=== PATIENT | female | born 1990 | race Two or more races ===

== ENCOUNTER 2022-01-19 18:33 | Inpatient (IN) | payer BC ==
[2022-01-19] MEDS ORDERED: SODIUM CHLORIDE 0.9% 1,000 ML IV ONE (18:59)
[2022-01-19] MEDS ORDERED: LORazepam 2 MG/ML INJ IV STA ×2 (18:59→22:00)
[2022-01-19 19:48] LABS: Basophils # (A) 0.1 k/uL (0-0.2); Basophils % (A) 1 %; Eosinophils # (A) 0.2 k/uL (0-0.7); Eosinophils % (A) 2 %; HCT 43.6 % (34.0-46.0); HGB 14.8 gm/dL (11.4-16.0); Lymphocytes # (A) 1.8 k/uL (1.0-4.8); Lymphocytes % (A) 24 %; MCH 38.4 pg (25.0-35.0); MCHC 33.8 g/dL (31.0-37.0); Macrocytosis Marked; Mean Platelet Volume 7.7; Monocytes # (A) 0.6 k/uL (0-1.0); Monocytes % (A) 8 %; Neutrophils # (A) 4.7 k/uL (1.3-7.7); Neutrophils % (A) 63 %; Platelet Count 127 k/uL (150-450); RBC 3.85 m/uL (3.80-5.40); RDW 13.8 % (11.5-15.5); WBC 7.4 k/uL (3.8-10.6)
[2022-01-19 19:53] LABS: MCV 113.3 fL (80.0-100.0)
[2022-01-19 20:05] LABS: Basophilic Stippling Present; Polychromasia Present
[2022-01-19] MEDS ORDERED: LORazepam 2 MG/ML INJ IV PRN (20:17)
[2022-01-19] MEDS ORDERED: THIAMINE 100 MG/ML 2 ML VIAL IM STA (20:17)
[2022-01-19 20:20] LABS: African American GFR (CKD) >90 (>60 ml/min/1.73 sqM); Albumin 4.7 g/dL (3.5-5.0); Anion Gap 14 mmol/L; Blood Urea Nitrogen 10 mg/dL (7-17); Calcium 10.2 mg/dL (8.4-10.2); Carbon Dioxide 18 mmol/L (22-30); Chloride 104 mmol/L (98-107); Glucose 75 mg/dL (74-99); Non-African American GFR(CKD) >90 (>60 ml/min/1.73 sqM); Potassium 3.3 mmol/L (3.5-5.1); Sodium 136 mmol/L (137-145); Total Bilirubin 1.6 mg/dL (0.2-1.3); Total Protein 7.6 g/dL (6.3-8.2)
[2022-01-19 20:22] LABS: ALT 69 U/L (4-34); AST 180 U/L (14-36); Alcohol <10 mg/dL; Alkaline Phosphatase 255 U/L (38-126); Magnesium 1.8 mg/dL (1.6-2.3)
--- NOTE | 2022-01-19 21:00 | ED ---
General Adult HPI - General Chief complaint: Psychiatric Symptoms Stated complaint: Petition Time Seen by Provider: 01/19/22 18:43 Source: patient, RN notes reviewed, old records reviewed Mode of arrival: ambulatory Limitations: no limitations - History of Present Illness Initial comments: 31-year-old female presenting for evaluation of hallucinations. She brought in by local police. She has been petitioned for psychiatric evaluation. She has no previous diagnosed psychiatric condition. She is a daily drinker and states her last drink was about 4 days ago. Patient is anxious but cooperative with history. She states she took some sleeping medication because she hasn't slept in the past 4 days. - Related Data Home Medications Medication Instructions Recorded Confirmed Sertraline HCl [Zoloft] 25 mg PO DAILY 01/19/22 01/19/22 hydrOXYzine HCL [Atarax] 10 mg PO DAILY PRN 01/19/22 01/19/22 Allergies Allergy/AdvReac Type Severity Reaction Status Date / Time No Known Allergies Allergy Verified 01/19/22 21:41 Review of Systems ROS Statement: Those systems with pertinent positive or pertinent negative responses have been documented in the HPI. ROS Other: All systems not noted in ROS Statement are negative. Past Medical History Additional Past Medical History / Comment(s): kidney stones History of Any Multi-Drug Resistant Organisms: None Reported Past Surgical History: No Surgical Hx Reported Past Psychological History: No Psychological Hx Reported Smoking Status: Current every day smoker Past Alcohol Use History: None Reported Past Drug Use History: Marijuana General Exam Limitations: no limitations General appearance: alert, anxious (Tremulous) Head exam: Present: atraumatic, normocephalic Eye exam: Present: normal appearance, PERRL ENT exam: Present: mucous membranes dry Neck exam: Present: normal inspection. Absent: tenderness, meningismus Respiratory exam: Present: normal lung sounds bilaterally. Absent: respiratory distress, wheezes Cardiovascular Exam: Present: normal rhythm, tachycardia GI/Abdominal exam: Present: soft. Absent: distended, tenderness, guarding Extremities exam: Present: normal inspection, normal capillary refill. Absent: pedal edema, calf tenderness Neurological exam: Present: alert, oriented X3, CN II-XII intact. Absent: motor sensory deficit Psychiatric exam: Present: anxious, manic Skin exam: Present: warm, dry, intact. Absent: cyanosis, diaphoretic Course Vital Signs 01/19/22 18:36 Temperature 100.4 F H Pulse Rate 151 H Respiratory 18 Rate Blood Pressure 151/97 O2 Sat by Pulse 97 Oximetry Medical Decision Making - Medical Decision Making 31-year-old female presenting with visual and auditory hallucination. Patient has a tremor. When she focuses she was able to give a good historian details and admits that she hasn't slept in the past 4 days and admits that she does drink quite regularly. I discussed the case with her who has petitioned her. He states that she is a daily drinker. This may be alcohol withdrawal hallucination and impending delirium tremens. She's given Ativan and placed on Ativan according to CIWA scale she will be admitted to a monitored bed. Psyc hiatry will be placed on consult. Laboratory testing is consistent with alcohol abuse. She has hypokalemia, elevated bilirubin and AST and ALT. Serum alcohol is negative. - Lab Data Result diagrams: 01/19/22 19:38 01/19/22 19:38 Lab Results 01/19/22 01/19/22 01/19/22 Range/Units 19:38 19:38 19:39 WBC 7.4 (3.8-10.6) k/uL RBC 3.85 (3.80-5.40) m/uL Hgb 14.8 (11.4-16.0) gm/dL Hct 43.6 (34.0-46.0) % MCV 113.3 H (80.0-100.0) fL MCH 38.4 H (25.0-35.0) pg MCHC 33.8 (31.0-37.0) g/dL RDW 13.8 (11.5-15.5) % Plt Count 127 L (150-450) k/uL MPV 7.7 Neutrophils % 63 % Lymphocytes % 24 % Monocytes % 8 % Eosinophils % 2 % Basophils % 1 % Neutrophils # 4.7 (1.3-7.7) k/uL Lymphocytes # 1.8 (1.0-4.8) k/uL Monocytes # 0.6 (0-1.0) k/uL Eosinophils # 0.2 (0-0.7) k/uL Basophils # 0.1 (0-0.2) k/uL Manual Slide Review Performed Polychromasia Present Basophilic Stippling Present Macrocytosis Marked A Sodium 136 L (137-145) mmol/L Potassium 3.3 L (3.5-5.1) mmol/L Chloride 104 (98-107) mmol/L Carbon Dioxide 18 L (22-30) mmol/L Anion Gap 14 mmol/L BUN 10 (7-17) mg/dL Creatinine 0.57 (0.52-1.04) mg/dL Est GFR (CKD-EPI)AfAm >90 (>60 ml/min/1.73 sqM) Est GFR (CKD-EPI)NonAf >90 (>60 ml/min/1.73 sqM) Glucose 75 (74-99) mg/dL Calcium 10.2 (8.4-10.2) mg/dL Magnesium 1.8 (1.6-2.3) mg/dL Total Bilirubin 1.6 H (0.2-1.3) mg/dL AST 180 H (14-36) U/L ALT 69 H (4-34) U/L Alkaline Phosphatase 255 H (38-126) U/L Total Protein 7.6 (6.3-8.2) g/dL Albumin 4.7 (3.5-5.0) g/dL HCG, Qual Not Detected Serum Alcohol <10 mg/dL Disposition Clinical Impression: Acute psychosis, Alcohol withdrawal delirium Disposition: ADMITTED IP TO THIS HOSP Condition: Serious Is patient prescribed a controlled substance at d/c from ED?: No Time of Disposition: 21:01
[2022-01-19] MEDS ORDERED: NALOXONE 0.4 MG/ML 1 ML VIAL IV PRN (21:01)
[2022-01-19] MEDS ORDERED: SODIUM CHLORIDE 0.9% 1,000 ML with MVI, ADULT NO.4 WITH VIT K 10 ML, THIAMINE 100 MG, F... IV ONE ×4 (21:03)
--- NOTE | 2022-01-19 22:06 | CT ---
EXAMINATION TYPE: CT brain wo con DATE OF EXAM: 01/19/2022 COMPARISON: None HISTORY: ams CT DLP: 1173.4 mGycm Automated exposure control for dose reduction was used. Images of the brain obtained without contrast. Ventricles of normal size. There is no mass effect nor midline shift. There is no sign of intracrania l hemorrhage. The calvarium is intact. No evidence of cerebral edema. IMPRESSION: Negative unenhanced head CT scan.
[2022-01-19 22:29] LABS: Appearance,Urine Clear (Clear); Bilirubin,Urine Negative (Negative); Blood,Urine Negative (Negative); Color,Urine Yellow; Glucose,Urine (UA) Negative (Negative); Ketones,Urine 3+ (Negative); Leukocyte Esterase,Urine Negative (Negative); Nitrite,Urine Negative (Negative); Protein,Urine Trace (Negative)
[2022-01-19 22:39] LABS: Urn Cannabinoid Scrn Detected (NotDetected)
[2022-01-19 22:40] LABS: Amphetamine Screen,Urine Not Detected (NotDetected); Barbiturate Screen,Urine Not Detected (NotDetected); Benzodiazepines Screen,Urine Not Detected (NotDetected); Cocaine Screen,Urine Not Detected (NotDetected); Methadone Screen, Urine Not Detected (NotDetected); Opiate Screen,Urine Not Detected (NotDetected); Oxycodone Screen, Urine Not Detected (NotDetected); Phencyclidine Screen,Urine Not Detected (NotDetected); Tricyclic Antidepressant,Urine Not Detected (NotDetected)
[2022-01-19] MEDS ORDERED: DIAZEPAM 5 MG/ML 2 ML INJ IVP STA (22:55)
[2022-01-20] MEDS: POTASSIUM CHLORIDE 10 MEQ in WATER FOR INJECTION 1 100ML.BAG IVPB SCH ×4 (00:50→04:43)
[2022-01-20] MEDS: LORazepam 2 MG/ML INJ IV PRN ×4 (06:34→20:53)
[2022-01-20] MEDS: THIAMINE 100 MG TAB PO SCH ×2 (07:23→18:52)
[2022-01-20] MEDS: HYDROmorphone 0.5 MG/0.5 ML SYRINGE IVP PRN (13:57)
--- NOTE | 2022-01-20 17:22 | P.CN ---
Psychiatric Consult - . Consult date: 01/20/22 Consult:: IDENTIFYING DATA: A 31-year-old female who presented to the ER for evaluation of hallucinations. Psychiatry is consulted for acute psychosis. HPI: This is a 31-year-old female who was brought in by police on a petition for hallucinations. On my assessment patient is found sitting up in bed. She is labile and at times during the assessment she begins to attend to internal stimuli. Her thoughts are disorganized and call to follow. She is easily confused and her says that she is at [place] but eventually corrects herself to say [place]. She reports in the past week she has taken Unisom on 2 different occasions due to difficulty sleeping. She reports she also tried to quit drinking cold turkey. She reports this week she started to hallucinate and see things out of the corner of her eye. She also believed "like someone was messing with the blinds". 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 He appears to be an unreliable historian. She denies auditory or visual hallucinations, but clearly appears to be attending to internal stimuli during our assessment. She appears to be utilizing the defense mechanisms of denial and minimization. She does not believe she needs psychiatric treatment and wants to go home. Labs reviewed: MCV elevated, AST ALT and alk phos elevated, UDS positive for marijuana, urinalysis with positive ketones. PAST PSYCHIATRIC HISTORY: She denies past psychiatric admissions. She denies ever seeing a psychiatrist before. She does report having seen a therapist on [address]. She reports past psychiatric medications as Hamer and Ativan. Past Medical History: She denies past medical history except for kidney stones. Past Surgical History: Denies past surgeries. ALLERGIES: Allergies No Known Allergies Allergy (Verified 01/19/22 21:41) CHEMICAL DEPENDENCY HISTORY: He reports a history of smoking daily but reports she now mostly tapes. She reports drinking between 4 shots to 1 pint of vodka daily. He reports daily marijuana use. FAMILY PSYCHIATRIC/SUBSTANCE USE HISTORY: She reports an uncle is diagnosed with schizophrenia. SOCIAL HISTORY: She reports she is and has a 2-year-old daughter. He reports living with her and 2-year-old daughter. He reports working at [employer]. MENTAL STATUS EXAM: General Appearance: Patient appears slender and younger than stated age. Orientation: She is awake, alert, and oriented to person, place (initially says [place] but corrects herself to [place]), month/year. Behavior: Patient is seated in bed without any agitated behavior. Eye contact is intense and is easily frustrated. Speech: Patient's speech is fluent, loud, rapid but nonpressured. Mood/Affect: Patient reports mood is fine, affect is labile Suicidality/Homicidality: Patient denies suicidal or homicidal ideations, plan or intent. Perceptions: Patient denies any visual hallucinations and denies any auditory hallucinations, but objectively is attending to internal stimuli. Though content/process: Thoughts are disorganized and difficult to follow. She appears to be utilizing the defense mechanisms of denial and minimization. Memory and concentration: Immediate, recent and remote memory are impaired. Insight: poor Judgment: poor IMPRESSIONS: Alcohol withdrawal with perceptual disturbances Rule out substance-induced psychosis such as cannabis-induced psychosis Alcohol use disorder Cannabis use disorder Tobacco use disorder PLAN: Please DO NOT discharge patient without first discussing with psychiatry. Psychiatry will continue to follow and reassess patient to determine whether inpatient psychiatric admission is necessary. Recommended medication changes: Start Seroquel 25 mg daily at bedtime for psychosis/delirium. Continue CIWA and alcohol withdrawal protocol. Vitamin B12 and folate levels ordered. Continue one-to-one sitter for safety. Patient cannot leave AMA at this time. Patient currently does not have capacity for medical decision making due to psychosis. 01/20/22 13:16 01/20/22 16:46 Laboratory Tests Range/Units 01/19/22 01/19/22 01/19/22 19:38 19:38 19:39 WBC (3.8-10.6) k/uL 7.4 RBC (3.80-5.40) m/uL 3.85 Hgb (11.4-16.0) gm/dL 14.8 Hct (34.0-46.0) % 43.6 MCV (80.0-100.0) fL 113.3 H MCH (25.0-35.0) pg 38.4 H MCHC (31.0-37.0) g/dL 33.8 RDW (11.5-15.5) % 13.8 Plt Count (150-450) k/uL 127 L MPV 7.7 Neutrophils % % 63 Lymphocytes % % 24 Monocytes % % 8 Eosinophils % % 2 Basophils % % 1 Neutrophils # (1.3-7.7) k/uL 4.7 Lymphocytes # (1.0-4.8) k/uL 1.8 Monocytes # (0-1.0) k/uL 0.6 Eosinophils # (0-0.7) k/uL 0.2 Basophils # (0-0.2) k/uL 0.1 Manual Slide Review Performed Polychromasia Present Basophilic Stippling Present Macrocytosis Marked A Sodium (137-145) mmol/L 136 L Potassium (3.5-5.1) mmol/L 3.3 L Chloride (98-107) mmol/L 104 Carbon Dioxide (22-30) mmol/L 18 L Anion Gap mmol/L 14 BUN (7-17) mg/dL 10 Creatinine (0.52-1.04) mg/dL 0.57 Est GFR (CKD-EPI)AfAm (>60 ml/min/1.73 sqM) >90 Est GFR (CKD-EPI)NonAf (>60 ml/min/1.73 sqM) >90 Glucose (74-99) mg/dL 75 Calcium (8.4-10.2) mg/dL 10.2 Magnesium (1.6-2.3) mg/dL 1.8 Total Bilirubin (0.2-1.3) mg/dL 1.6 H AST (14-36) U/L 180 H ALT (4-34) U/L 69 H Alkaline Phosphatase (38-126) U/L 255 H Total Protein (6.3-8.2) g/dL 7.6 Albumin (3.5-5.0) g/dL 4.7 HCG, Qual Not Detected Urine Color Urine Appearance (Clear) Urine pH (5.0-8.0) Ur Specific [place] (1.001-1.035) Urine Protein (Negative) Urine Glucose (UA) (Negative) Urine Ketones (Negative) Urine Blood (Negative) Urine Nitrite (Negative) Urine Bilirubin (Negative) Urine Urobilinogen (<2.0) mg/dL Ur Leukocyte Esterase (Negative) Urine Opiates Screen (NotDetected) Ur Oxycodone Screen (NotDetected) Urine Methadone Screen (NotDetected) Ur Propoxyphene Screen (NotDetected) Ur Barbiturates Screen (NotDetected) U Tricyclic Antidepress (NotDetected) Ur Phencyclidine Scrn (NotDetected) Ur Amphetamines Screen (NotDetected) U Methamphetamines Scrn (NotDetected) U Benzodiazepines Scrn (NotDetected) Urine Cocaine Screen (NotDetected) U Marijuana (THC) Screen (NotDetected) Serum Alcohol mg/dL <10 Range/Units 01/19/22 22:11 WBC (3.8-10.6) k/uL RBC (3.80-5.40) m/uL Hgb (11.4-16.0) gm/dL Hct (34.0-46.0) % MCV (80.0-100.0) fL MCH (25.0-35.0) pg MCHC (31.0-37.0) g/dL RDW (11.5-15.5) % Plt Count (150-450) k/uL MPV Neutrophils % % Lymphocytes % % Monocytes % % Eosinophils % % Basophils % % Neutrophils # (1.3-7.7) k/uL Lymphocytes # (1.0-4.8) k/uL Monocytes # (0-1.0) k/uL Eosinophils # (0-0.7) k/uL Basophils # (0-0.2) k/uL Manual Slide Review Polychromasia Basophilic Stippling Macrocytosis Sodium (137-145) mmol/L Potassium (3.5-5.1) mmol/L Chloride (98-107) mmol/L Carbon Dioxide (22-30) mmol/L Anion Gap mmol/L BUN (7-17) mg/dL Creatinine (0.52-1.04) mg/dL Est GFR (CKD-EPI)AfAm (>60 ml/min/1.73 sqM) Est GFR (CKD-EPI)NonAf (>60 ml/min/1.73 sqM) Glucose (74-99) mg/dL Calcium (8.4-10.2) mg/dL Magnesium (1.6-2.3) mg/dL Total Bilirubin (0.2-1.3) mg/dL AST (14-36) U/L ALT (4-34) U/L Alkaline Phosphatase (38-126) U/L Total Protein (6.3-8.2) g/dL Albumin (3.5-5.0) g/dL HCG, Qual Urine Color Yellow Urine Appearance (Clear) Clear Urine pH (5.0-8.0) 6.0 Ur Specific [place] (1.001-1.035) 1.020 Urine Protein (Negative) Trace H Urine Glucose (UA) (Negative) Negative Urine Ketones (Negative) 3+ H Urine Blood (Negative) Negative Urine Nitrite (Negative) Negative Urine Bilirubin (Negative) Negative Urine Urobilinogen (<2.0) mg/dL 2.0 Ur Leukocyte Esterase (Negative) Negative Urine Opiates Screen (NotDetected) Not Detected Ur Oxycodone Screen (NotDetected) Not Detected Urine Methadone Screen (NotDetected) Not Detected Ur Propoxyphene Screen (NotDetected) Not Detected Ur Barbiturates Screen (NotDetected) Not Detected U Tricyclic Antidepress (NotDetected) Not Detected Ur Phencyclidine Scrn (NotDetected) Not Detected Ur Amphetamines Screen (NotDetected) Not Detected U Methamphetamines Scrn (NotDetected) Not Detected U Benzodiazepines Scrn (NotDetected) Not Detected Urine Cocaine Screen (NotDetected) Not Detected U Marijuana (THC) Screen (NotDetected) Detected H Serum Alcohol mg/dL
--- NOTE | 2022-01-20 20:25 | P.HPIM ---
History of Present Illness H&P Date: 01/20/22 Chief Complaint: Hallucinations 31-year-old female with a known history of smoking, marijuana use and renal stones, depression/anxiety and alcohol use was brought to the hospital by local police. Apparently patient has been having hallucinations and was petitioned for psychiatric evaluation. Otherwise patient is a daily drinker and states that her last drink was 4 days ago. Patient is talking to herself. Able to provide history otherwise. Denies any complaints of chest pain or abdominal pain. No shortness of breath. No leg swelling. No fever no chills. No nausea vomiting abdominal pain or diarrhea. CT head showed negative unenhanced CT head. Urinalysis showed 3+ ketones and leukocytes esterase negative. UDS is positive for marijuana Serum alcohol level is less than 10 WBC 7.4 hemoglobin 14.8 and platelets 127 Sodium 136 potassium 3.3 chloride 104 bicarb is 18 BUN 10 and creatinine 0.57 and bilirubin level is 1.6 AST 180 ALT 69, alk phos 255 Review of Systems Constitutional: Patient denies any fever or chills . No generalized weakness or weight loss. Abdomen: Patient denied nausea vomiting and diarrhea and abdominal pain. Cardiovascular: Patient denies any chest pain or short of breath no palpitations. Respiratory: patient denied any cough or sputum production. No shortness of breath Neurologic: Patient denied any numbness or tingling headache. Complete review of systems could not be obtained and the patient except as per HPI. Past Medical History Additional Past Medical History / Comment(s): kidney stones History of Any Multi-Drug Resistant Organisms: None Reported Past Surgical History: No Surgical Hx Reported Past Psychological History: No Psychological Hx Reported Smoking Status: Current every day smoker Past Alcohol Use History: None Reported Past Drug Use History: Marijuana Medications and Allergies Home Medications Medication Instructions Recorded Confirmed Type Sertraline HCl [Zoloft] 25 mg PO DAILY 01/19/22 01/19/22 History hydrOXYzine HCL [Atarax] 10 mg PO DAILY PRN 01/19/22 01/19/22 History Allergies Allergy/AdvReac Type Severity Reaction Status Date / Time No Known Allergies Allergy Verified 01/19/22 21:41 Physical Exam Vitals: Vital Signs Temp Pulse Resp BP Pulse Ox 01/20/22 06:35 79 18 114/90 99 01/20/22 04:44 86 18 104/66 99 01/20/22 02:00 91 98 01/19/22 23:55 98.2 F 95 20 100/70 98 01/19/22 23:00 122 H 20 130/92 98 01/19/22 20:00 125 H 22 160/92 98 01/19/22 18:36 100.4 F H 151 H 18 151/97 97 Intake and Output 01/19/22 01/20/22 01/20/22 22:59 06:59 14:59 Other: Weight 43.998 kg PHYSICAL EXAMINATION: Patient is lying in the bed comfortably, no acute distress, awake alert and oriented.. HEENT: Normocephalic. Neck is supple. Pupils reactive. Nostrils clear. Oral cavity is moist. Neck reveals no JVD, carotid bruits, or thyromegaly. CHEST EXAMINATION: Trachea is central. Symmetrical expansion. Lung evans clear to auscultation and percussion. CARDIAC: Normal S1, S2 with no gallops. No murmurs ABDOMEN: Soft. Bowel sounds normal. No organomegaly. No abdominal bruits. Extremities: reveal no edema. No clubbing or cyanosis Neurologically awake, alert, oriented x3 with well-coordinated movements. No focal deficits noted Skin: No rash or skin lesions. Psychiatric: Cooperative. Talking to herself sometimes. Musculoskeletal: No joint swelling or deformity. Normal range of motion. Results CBC & Chem 7: 01/19/22 19:38 01/19/22 19:38 Labs: Abnormal Lab Results - Last 24 Hours (Table) 01/19/22 01/19/22 01/19/22 Range/Units 19:38 19:38 22:11 MCV 113.3 H (80.0-100.0) fL MCH 38.4 H (25.0-35.0) pg Plt Count 127 L (150-450) k/uL Macrocytosis Marked A Sodium 136 L (137-145) mmol/L Potassium 3.3 L (3.5-5.1) mmol/L Carbon Dioxide 18 L (22-30) mmol/L Total Bilirubin 1.6 H (0.2-1.3) mg/dL AST 180 H (14-36) U/L ALT 69 H (4-34) U/L Alkaline Phosphatase 255 H (38-126) U/L Urine Protein Trace H (Negative) Urine Ketones 3+ H (Negative) U Marijuana (THC) Screen Detected H (NotDetected) Thrombosis Risk Factor Assmnt - DVT/VTE Prophylaxis DVT/VTE Prophylaxis: Pharmacologic Prophylaxis ordered Assessment and Plan Assessment: Hallucinations Acute alcohol withdrawal symptoms Rule out cannabis induced psychosis Alcohol abuse last drink 4 days ago Currently everyday smoker Elevated liver enzymes possible alcoholic hepatitis Marijuana use DVT prophylaxis 30 ambulation History of renal stones. Plan: Patient will be continued on IV hydration and replace electrolytes. Patient will be continued on alcohol withdrawal protocol. Follow-up B12 and folate levels. Continue thiamine and multivitamin. Psychiatry was consulted. Current with bedside sitter and follow-up closely. Time with Patient: Greater than 30
[2022-01-20] MEDS: QUEtiapine 25 MG TAB PO SCH (20:52)
[2022-01-21] MEDS: LORazepam 2 MG/ML INJ IV PRN ×4 (04:59→20:36)
[2022-01-21 08:26] LABS: Basophils % (A) 1 %; Eosinophils # (A) 0.1 k/uL (0-0.7); Eosinophils % (A) 3 %; HCT 38.4 % (34.0-46.0); HGB 12.9 gm/dL (11.4-16.0); Lymphocytes # (A) 0.6 k/uL (1.0-4.8); Lymphocytes % (A) 27 %; MCHC 33.6 g/dL (31.0-37.0); MCV 116.2 fL (80.0-100.0); Macrocytosis Marked; Mean Platelet Volume 7.9; Monocytes # (A) 0.2 k/uL (0-1.0); Monocytes % (A) 11 %; Neutrophils # (A) 1.3 k/uL (1.3-7.7); Neutrophils % (A) 57 %; RDW 13.5 % (11.5-15.5); WBC 2.3 k/uL (3.8-10.6)
[2022-01-21 08:37] LABS: ALT 50 U/L (4-34); AST 116 U/L (14-36); African American GFR (CKD) >90 (>60 ml/min/1.73 sqM); Albumin 3.1 g/dL (3.5-5.0); Alkaline Phosphatase 153 U/L (38-126); Anion Gap 6 mmol/L; Blood Urea Nitrogen 6 mg/dL (7-17); Calcium 8.3 mg/dL (8.4-10.2); Carbon Dioxide 22 mmol/L (22-30); Chloride 108 mmol/L (98-107); Glucose 85 mg/dL (74-99); Non-African American GFR(CKD) >90 (>60 ml/min/1.73 sqM); Sodium 136 mmol/L (137-145); Total Bilirubin 0.9 mg/dL (0.2-1.3); Total Protein 5.7 g/dL (6.3-8.2)
[2022-01-21 09:31] LABS: Potassium 2.6 mmol/L (3.5-5.1)
[2022-01-21] MEDS: THIAMINE 100 MG TAB PO SCH ×2 (12:22→16:27)
[2022-01-21] MEDS: HYDROmorphone 0.5 MG/0.5 ML SYRINGE IVP PRN (12:24)
[2022-01-21 13:11] VITALS: BMI 17.2
--- NOTE | 2022-01-21 14:24 | P.PN ---
Progress Note - Text Progress Note Date: 01/21/22 Interval History: Patient was seen today for psychiatric follow-up regarding patient's psychosis and alcohol withdrawal. Patient was laying in her bed with a sitter beside her. She claims that she took for Benadryl's prior to coming in the hospital and began having hallucinations. She states that mainly was visual hallucinations however did have some auditory as well as she claims that she was acting bizarre and "not like myself". She appears to have improvement in her affect and was more goal oriented and logical in her thought process. She states that she has been sleeping better with the Seroquel last night. Continues to have some poor appetite. She is denying any alcohol withdrawal symptoms at this time. We spoke about potential rehab however patient is not agreeable to go to rehab today. At this time patient denies any suicidal or homical ideations, intent or plan. Patient denies any auditory, visual hallucinations and denies any paranoia or delusions. Patient denies any side effects from the medications and has been compliant with meds. She does claim that she has a history of depression and anxiety for several years now and was agreeable to try Prozac. Mental Status Exam: General Appearance: Patient appears slender and younger than stated age. Orientation: She is awake, alert, and oriented to person, place and date Behavior: Patient is seated in bed without any agitated behavior. Eye contact is appropriate Speech: Patient's speech is fluent, and logical. Mood/Affect: Patient reports mood is fine, affect is congruent Suicidality/Homicidality: Patient denies suicidal or homicidal ideations, plan or intent. Perceptions: Patient denies any visual hallucinations and denies any auditory hallucinations Though content/process: Thoughts are more organized today and goal oriented. Logical. Memory and concentration: Improved. Insight/insight: poor IMPRESSIONS: Delirium likely secondary to medications (Benadryl) and alcohol withdrawal history of major depressive disorder Alcohol use disorder Cannabis use disorder Nicotine dependence Plan: -At this time patient DOES NOT meet criteria for inpatient psychiatric admission. -Delirium precautions recommended with patient including - avoiding use of narcotics and BLOCK SEALER sedatives, limit anticholinergic medications when possible, frequent re-orientation, minimize use of restraints, open window shades during the day and close them at night -Would recommend the following medication changes/additions: continue with seroquel 25 mg qhs for insomnia/psychosis, added prozac 20 mg anxiety/depression. -Can discontinue 1:1 sitter at this time as patient is not currently an imminent threat to themselves -chemical research worker to provide patient with outpatient mental health/psychiatry resources for appropriate follow up upon discharge -Business Center Manager spoke with patient about substance abuse and the harmful effects on medi fela and mental health, patient verbally understood and agreed. -chemical research worker to provide patient substance use treatment resources including AA/NA meetings in the community. -chemical research worker to provide patient with access line number to call for inpatient substance rehab -Communicated plan to patient's nurse -Psychiatry will sign off at this time -Please contact with any questions.
[2022-01-21] MEDS ORDERED: Potassium Replacement Protocol 1 EACH MISC MISCELLANE PRN (14:47)
[2022-01-21] MEDS ORDERED: POTASSIUM CHLORIDE ER 20 MEQ TAB.ER PO ONE ×2 (15:00→16:23)
[2022-01-21] MEDS: POTASSIUM CHLORIDE ER 20 MEQ TAB.ER PO SCH ×3 (15:11→17:13)
[2022-01-21] MEDS: FLUoxetine HCL 20 MG CAP PO SCH (15:11)
[2022-01-21 20:24] LABS: Polychromasia Present
[2022-01-21 20:25] LABS: Platelet Count 77 k/uL (150-450)
[2022-01-21] MEDS: QUEtiapine 25 MG TAB PO SCH (20:35)
[2022-01-21 21:21] VITALS: RESP 18
[2022-01-22] MEDS: LORazepam 2 MG/ML INJ IV PRN ×4 (01:53→15:00)
[2022-01-22] MEDS: THIAMINE 100 MG TAB PO SCH ×2 (06:46→15:07)
[2022-01-22] MEDS: ACETAMINOPHEN TAB 325 MG TAB PO PRN ×2 (07:02→12:50)
[2022-01-22 08:12] LABS: Basophils % (A) 1 %; Eosinophils % (A) 2 %; HCT 40.3 % (34.0-46.0); HGB 13.4 gm/dL (11.4-16.0); Lymphocytes # (A) 0.8 k/uL (1.0-4.8); Lymphocytes % (A) 44 %; MCH 39.3 pg (25.0-35.0); MCHC 33.2 g/dL (31.0-37.0); MCV 118.2 fL (80.0-100.0); Macrocytosis Marked; Mean Platelet Volume 7.7; Monocytes # (A) 0.2 k/uL (0-1.0); Monocytes % (A) 13 %; Neutrophils # (A) 0.7 k/uL (1.3-7.7); Neutrophils % (A) 38 %; RBC 3.41 m/uL (3.80-5.40); RDW 14.5 % (11.5-15.5); WBC 1.8 k/uL (3.8-10.6)
[2022-01-22 08:13] LABS: Platelet Count 88 k/uL (150-450)
[2022-01-22 08:25] LABS: Potassium 3.7 mmol/L (3.5-5.1)
[2022-01-22 08:26] LABS: African American GFR (CKD) >90 (>60 ml/min/1.73 sqM); Anion Gap 7 mmol/L; Blood Urea Nitrogen 6 mg/dL (7-17); Carbon Dioxide 22 mmol/L (22-30); Chloride 108 mmol/L (98-107); Glucose 93 mg/dL (74-99); Non-African American GFR(CKD) >90 (>60 ml/min/1.73 sqM); Sodium 137 mmol/L (137-145)
[2022-01-22 08:29] LABS: Calcium 8.8 mg/dL (8.4-10.2)
[2022-01-22 08:39] LABS: ALT 43 U/L (4-34); AST 83 U/L (14-36); Albumin 3.2 g/dL (3.5-5.0); Alkaline Phosphatase 145 U/L (38-126); Total Bilirubin 0.7 mg/dL (0.2-1.3); Total Protein 5.8 g/dL (6.3-8.2)
[2022-01-22] MEDS: IBUPROFEN 400 MG TAB PO PRN ×2 (08:46→15:07)
[2022-01-22] MEDS: FLUoxetine HCL 20 MG CAP PO SCH (08:47)
--- NOTE | 2022-01-22 10:00 | PN ---
PROGRESS NOTE This is a 31-year-old white female with depression, came in with alcohol withdrawal. Will need alcohol addiction medicine due to alcohol dependence. Cardiovascular S1-S2. Lungs clear. GI soft. Hematology negative Homans. ASSESSMENT: 1. Acute alcohol withdrawal. 2. Psychosis. Prognosis guarded. Follow up in next 24 to 48 hours for discharge home on addiction medicine. MMODL / IJN: [id number] /
[2022-01-22] MEDS: ACAMPROSATE CALCIUM 333 MG TABLET.DR PO SCH ×3 (12:34→19:43)
[2022-01-22 15:03] VITALS: BP 137/96; PULSE 76; TEMP 98.2
[2022-01-22] MEDS: QUEtiapine 25 MG TAB PO SCH (19:43)
== END 2022-01-22 20:15 | disposition home or self-care (01) | DRG 897 ==
LOC: EC 18:33 → 3SCARD 21:01
PROVIDERS: ADMIT Family Medicine; ATTEND Family Medicine
DX: F10.231 Alcohol dependence with withdrawal delirium (principal); F23 Brief psychotic disorder; R17 Unspecified jaundice; E87.6 Hypokalemia; F12.10 Cannabis abuse, uncomplicated; F17.200 Nicotine dependence, unspecified, uncomplicated; Z79.899 Other long term (current) drug therapy; Z87.442 Personal history of urinary calculi; Z81.8 Family history of other mental and behavioral disorders; F32.9 Major depressive disorder, single episode, unspecified
CPT/HCPCS: 36415; 70450; 80053; 80306; 80320; 81003; 82075; 82607; 82746; 83735; 84132; 84443; 84703; 85025; 93005; 96361; 96372; 96374; 96375; 96376; 99285

== ENCOUNTER 2023-10-24 14:17 | Inpatient (IN) | payer BC, OTHER ==
[2023-10-24] MEDS ORDERED: HYDROmorphone 0.5 MG/0.5 ML SYRINGE IVP STA ×2 (14:35→16:05)
[2023-10-24] MEDS ORDERED: diphenhydrAMINE 50 MG/ML 1 ML VIAL IVP STA (14:35)
[2023-10-24] MEDS ORDERED: SODIUM CHLORIDE 0.9% 1,000 ML IV STA (14:35)
[2023-10-24] MEDS ORDERED: METOCLOPRAMIDE 5 MG/ML 2 ML VIAL IVP STA (14:35)
[2023-10-24] MEDS ORDERED: SODIUM CHLORIDE 0.9% 500 ML 500 ML IV STA (14:35)
[2023-10-24] MEDS ORDERED: KETOROLAC 15 MG/ML 1 ML VIAL IVP STA ×3 (14:35→21:11)
[2023-10-24 15:35] LABS: Basophils % (A) 0 %; Eosinophils # (A) 0.1 k/uL (0-0.7); Eosinophils % (A) 1 %; HCT 45.1 % (34.0-46.0); HGB 15.3 gm/dL (11.4-16.0); Lymphocytes # (A) 0.4 k/uL (1.0-4.8); Lymphocytes % (A) 3 %; MCH 36.7 pg (25.0-35.0); MCV 107.9 fL (80.0-100.0); Macrocytosis Moderate; Mean Platelet Volume 8.3; Monocytes # (A) 0.6 k/uL (0-1.0); Monocytes % (A) 4 %; Neutrophils # (A) 13.3 k/uL (1.3-7.7); Neutrophils % (A) 92 %; Platelet Count 125 k/uL (150-450); RBC 4.18 m/uL (3.80-5.40); RDW 12.6 % (11.5-15.5); WBC 14.5 k/uL (3.8-10.6)
--- NOTE | 2023-10-24 15:36 | ED ---
Abdominal Pain HPI - General Source: patient, EMS, RN notes reviewed Mode of arrival: EMS Limitations: no limitations <Bob Juarez - Last Filed: 10/24/23 15:35> - General Source: patient, EMS, RN notes reviewed, old records reviewed Mode of arrival: EMS Limitations: no limitations - History of Present Illness MD Complaint: abdominal pain -: days(s) Location: periumbilical, epigastric Radiation: epigastric Migration to: epigastric Severity: moderate Severity scale (1-10): 7 Quality: sharp Consistency: constant Improves With: nothing Worsens With: nothing Associated Symptoms: nausea, vomiting, diarrhea <Mariano Hart - Last Filed: 10/24/23 20:02> - General Chief Complaint: Abdominal Pain Stated Complaint: abd pain Time Seen by Provider: 10/24/23 14:20 - History of Present Illness Initial Comments: 33-year-old female presents emergency department via EMS chief complaint abdominal pain. Patient states she had a recent stent placed by urology and [facility]. Patient states that she is scared to have her stone removed. She states the pain has been constant states that she could not stop vomiting so she presented to the emergency department. She denies any fevers or chills. Patient offers no other complaints. (Bob Juarez) This is a 33-year-old female with severe abdominal pain. Patient rates the kidney stones and had a stent placed by urology but currently coming to the ER for evaluation of severe abdominal pain patient having severe abdominal pain with history of alcoholism (Mariano Hart) - Related Data Home Medications Medication Instructions Recorded Confirmed Ibuprofen [Motrin Ib] 600 mg PO Q8H PRN 10/24/23 10/24/23 QUEtiapine [SEROquel] 50 mg PO HS 10/24/23 10/24/23 Tamsulosin HCl [Flomax] 0.4 mg PO DAILY PRN 10/24/23 10/24/23 Previous Rx's Medication Instructions Recorded Acetaminophen Tab [Tylenol] 650 mg PO Q6HR PRN tab 01/22/22 Allergies Allergy/AdvReac Type Severity Reaction Status Date / Time No Known Allergies Allergy Verified 10/24/23 18:51 Review of Systems ROS Other: All systems not noted in ROS Statement are negative. <Bob Juarez - Last Filed: 10/24/23 15:35> ROS Other: All systems not noted in ROS Statement are negative. <Mariano Hart - Last Filed: 10/24/23 20:02> ROS Statement: Those systems with pertinent positive or pertinent negative responses have been documented in the HPI. Past Medical History Additional Past Medical History / Comment(s): kidney stones History of Any Multi-Drug Resistant Organisms: None Reported Past Surgical History: No Surgical Hx Reported Past Psychological History: No Psychological Hx Reported Smoking Status: Current every day smoker Past Alcohol Use History: None Reported Past Drug Use History: Marijuana <Bob Juarez - Last Filed: 10/24/23 15:35> General Exam Limitations: no limitations General appearance: alert, in no apparent distress Head exam: Present: atraumatic, normocephalic, normal inspection Eye exam: Present: normal appearance, PERRL, EOMI. Absent: scleral icterus, conjunctival injection, periorbital swelling ENT exam: Present: normal exam, mucous membranes moist Neck exam: Present: normal inspection. Absent: tenderness, meningismus, lymphadenopathy Respiratory exam: Present: normal lung sounds bilaterally. Absent: respiratory distress, wheezes, rales, rhonchi, stridor Cardiovascular Exam: Present: normal rhythm, tachycardia, normal heart sounds. Absent: systolic murmur, diastolic murmur, rubs, gallop, clicks GI/Abdominal exam: Present: soft, normal bowel sounds. Absent: distended, tenderness, guarding, rebound, rigid Neurological exam: Present: alert <Bob Juarez - Last Filed: 10/24/23 15:35> General appearance: alert, in no apparent distress Head exam: Present: atraumatic, normocephalic, normal inspection Eye exam: Present: normal appearance, PERRL, EOMI. Absent: scleral icterus, conjunctival injection, periorbital swelling ENT exam: Present: normal exam, mucous membranes moist Neck exam: Present: normal inspection. Absent: tenderness, meningismus, lymphadenopathy Respiratory exam: Present: normal lung sounds bilaterally. Absent: respiratory distress, wheezes, rales, rhonchi, stridor Cardiovascular Exam: Present: regular rate, normal rhythm, normal heart sounds. Absent: systolic murmur, diastolic murmur, rubs, gallop, clicks GI/Abdominal exam: Present: soft, normal bowel sounds. Absent: distended, tenderness, guarding, rebound, rigid Extremities exam: Present: normal inspection, full ROM, normal capillary refill. Absent: tenderness, pedal edema, joint swelling, calf tenderness Back exam: Present: normal inspection Neurological exam: Present: alert, oriented X3, CN II-XII intact Psychiatric exam: Present: normal affect, normal mood Skin exam: Present: warm, dry, intact, normal color. Absent: rash <Mariano Hart - Last Filed: 10/24/23 20:02> Course <Mariano Hart - Last Filed: 10/24/23 20:02> Vital Signs 10/24/23 10/24/23 10/24/23 14:20 16:21 18:56 Temperature 97.9 F 98.4 F Pulse Rate 114 H 104 H 85 Respiratory 20 18 18 Rate Blood Pressure 138/88 134/94 122/84 O2 Sat by Pulse 100 100 100 Oximetry - Reevaluation(s) Reevaluation #1: 10/24/23 20:01 Medical record is reviewed (Mariano Hart) Reevaluation #2: 10/24/23 20:01 Patient is symptoms are difficult to control pain is difficult to control (Mariano Hart) Reevaluation #3: 10/24/23 20:01 Patient informed of results and questions answered (Mariano Hart) Reevaluation #4: 10/24/23 20:01 Was pt. sent in by a medical professional or institution (, PA, BUSINESS ECONOMIST, urgent care, hospital, or [facility]...) When possible be specific @ -no Did you speak to anyone other than the patient for history (EMS, parent, family, police, friend...)? What history was obtained from this source @ -no Did you review nursing and triage notes (agree or disagree)? Why? @ -agree Are old charts reviewed (outside hosp., previous admission, EMS record, old EKG, old radiological studies, urgent care reports/EKG's, [facility] records)? Report findings @ -yes Differential Diagnosis (chest pain, altered mental status, abdominal pain women, abdominal pain men, vaginal bleeding, weakness, fever, dyspnea, syncope, headache, dizziness, GI bleed, back pain, seizure, CVA, palpatations, mental health, musculoskeletal)? @ -prior EKG interpreted by me (3pts min.). @ -yes X-rays interpreted by me (1pt min.). @ -yes negative for acute disease CT interpreted by me (1pt min.). @ -no U/S interpreted by me (1pt. min.). @ -no What testing was considered but not performed or refused? (CT, X-rays, U/S, labs)? Why? @ -none What meds were considered but not given or refused? Why? @ -none Did you discuss the management of the patient with other professionals (professionals i.e. Dr., PA, BUSINESS ECONOMIST, lab, RT, psych nurse, social services manager, site auditor, teacher, chief mechanical officer, skilled nursing case manager)? Give summary @ -no Was smoking cessation discussed for >3mins.? @ -no Was critical care preformed (if so, how long)? @ -no Were there social determinants of health that impacted care today? How? (Homelessness, low income, unemployed, alcoholism, drug addiction, trans portation, low edu. Level, literacy, decrease access to med. care, snf, rehab)? @ -none Was there de-escalation of care discussed even if they declined (Discuss DNR or withdrawal of care, Hospice)? DNR status @ -no What co-morbidities impacted this encounter? (DM, HTN, Smoking, COPD, CAD, Cancer, CVA, ARF, Chemo, Hep., AIDS, mental health diagnosis, sleep apnea, morbid obesity)? @ -none Was patient admitted / discharged? Hospital course, mention meds given and route, prescriptions, significant lab abnormalities, going to OR and other pertinent info. @ - Undiagnosed new problem with uncertain prognosis? @ -no Drug Therapy requiring intensive monitoring for toxicity (Heparin, Nitro, Ins ulin, Cardizem)? @ -no Were any procedures done? @ -no Diagnosis/symptom? @ - Acute, or Chronic, or Acute on Chronic? @ -Acute Uncomplicated (without systemic symptoms) or Complicated (systemic symptoms)? @ -Complicated Side effects of treatment? @ -no Exacerbation, Progression, or Severe Exacerbation? @ -exacerbation Poses a threat to life or bodily function? How? (Chest pain, USA, DC, pneumonia, PE, COPD, DKA, ARF, appy, cholecystitis, CVA, Diverticulitis, Homicidal, Suicidal, threat to staff... and all critical care pts) @ -yes (Mariano Hart) Reevaluation #5: 10/24/23 20:01 Differential Abdominal Pain Women: Appendicitis, Cholecystitis, diverticulosis, ischemic bowel, pancreatitis, hepatitis, UTI, gastroenteritis, AAA, incarcerated hernia, bowel obstruction, constipation, inflammatory bowel, hepatitis, peptic ulcer disease, splenic infarction, perforated viscus, vulvitis, ovarian torsion, PID, kidney stone, placenta abruption, this is not meant to be an all-inclusive list (Mariano Hart) - Consultations Consultation #1: Spoke with [facility] who agreed to admit this patient (Mariano Hart) Medical Decision Making - Lab Data Result diagrams: 10/24/23 14:47 10/24/23 14:47 - Radiology Data Radiology results: report reviewed (CT abdomen pelvis is positive for ileus), image reviewed <Mariano Hart - Last Filed: 10/24/23 20:02> - Medical Decision Making 33 female to the ER for evaluation abdominal pain uncontrolled abdominal pain from pancreatitis here in the ER, patient will be admitted for pancreatitis n.p.o. status IV hydration and pain control (Mariano Hart) - Lab Data Lab Results 10/24/23 10/24/23 10/24/23 Range/Units 14:47 14:47 14:47 WBC 14.5 H (3.8-10.6) k/uL RBC 4.18 (3.80-5.40) m/uL Hgb 15.3 (11.4-16.0) gm/dL Hct 45.1 (34.0-46.0) % MCV 107.9 H (80.0-100.0) fL MCH 36.7 H (25.0-35.0) pg MCHC 34.0 (31.0-37.0) g/dL RDW 12.6 (11.5-15.5) % Plt Count 125 L (150-450) k/uL MPV 8.3 Neutrophils % 92 % Lymphocytes % 3 % Monocytes % 4 % Eosinophils % 1 % Basophils % 0 % Neutrophils # 13.3 H (1.3-7.7) k/uL Lymphocytes # 0.4 L (1.0-4.8) k/uL Monocytes # 0.6 (0-1.0) k/uL Eosinophils # 0.1 (0-0.7) k/uL Basophils # 0.0 (0-0.2) k/uL Macrocytosis Moderate Sodium (137-145) mmol/L Potassium (3.5-5.1) mmol/L Chloride (98-107) mmol/L Carbon Dioxide (22-30) mmol/L Anion Gap mmol/L BUN (7-17) mg/dL Creatinine (0.52-1.04) mg/dL Est GFR (CKD-EPI)AfAm (>60 ml/min/1.73 sqM) Est GFR (CKD-EPI)NonAf (>60 ml/min/1.73 sqM) Glucose (74-99) mg/dL Calcium (8.4-10.2) mg/dL Total Bilirubin (0.2-1.3) mg/dL AST (14-36) U/L ALT (4-34) U/L Alkaline Phosphatase (38-126) U/L Total Protein (6.3-8.2) g/dL Albumin (3.5-5.0) g/dL Lipase (23-300) U/L Urine Color Yellow Urine Appearance Cloudy H (Clear) Urine pH 6.0 (5.0-8.0) Ur Specific [place] 1.019 (1.001-1.035) Urine Protein 2+ H (Negative) Urine Glucose (UA) Negative (Negative) Urine Ketones 4+ H (Negative) Urine Blood Large H (Negative) Urine Nitrite Negative (Negative) Urine Bilirubin 1+ H (Negative) Urine Urobilinogen 2.0 (<2.0) mg/dL Ur Leukocyte Esterase Large H (Negative) Urine RBC >182 H (0-5) /hpf Urine WBC 164 H (0-5) /hpf Ur Squamous Epith Cells 7 H (0-4) /hpf Urine Bacteria Occasional H (None) /hpf Urine Mucus Rare H (None) /hpf Urine HCG, Qual Not Detected (Not Detectd) 10/24/23 Range/Units 14:47 WBC (3.8-10.6) k/uL RBC (3.80-5.40) m/uL Hgb (11.4-16.0) gm/dL Hct (34.0-46.0) % MCV (80.0-100.0) fL MCH (25.0-35.0) pg MCHC (31.0-37.0) g/dL RDW (11.5-15.5) % Plt Count (150-450) k/uL MPV Neutrophils % % Lymphocytes % % Monocytes % % Eosinophils % % Basophils % % Neutrophils # (1.3-7.7) k/uL Lymphocytes # (1.0-4.8) k/uL Monocytes # (0-1.0) k/uL Eosinophils # (0-0.7) k/uL Basophils # (0-0.2) k/uL Macrocytosis Sodium 129 L (137-145) mmol/L Potassium 3.8 (3.5-5.1) mmol/L Chloride 91 L (98-107) mmol/L Carbon Dioxide 14 L (22-30) mmol/L Anion Gap 24 mmol/L BUN 30 H (7-17) mg/dL Creatinine 1.03 (0.52-1.04) mg/dL Est GFR (CKD-EPI)AfAm 82 (>60 ml/min/1.73 sqM) Est GFR (CKD-EPI)NonAf 71 (>60 ml/min/1.73 sqM) Glucose 90 (74-99) mg/dL Calcium 8.7 (8.4-10.2) mg/dL Total Bilirubin 2.2 H (0.2-1.3) mg/dL AST 185 H (14-36) U/L ALT 67 H (4-34) U/L Alkaline Phosphatase 228 H (38-126) U/L Total Protein 6.8 (6.3-8.2) g/dL Albumin 4.3 (3.5-5.0) g/dL Lipase 7178 H (23-300) U/L Urine Color Urine Appearance (Clear) Urine pH (5.0-8.0) Ur Specific [place] (1.001-1.035) Urine Protein (Negative) Urine Glucose (UA) (Negative) Urine Ketones (Negative) Urine Blood (Negative) Urine Nitrite (Negative) Urine Bilirubin (Negative) Urine Urobilinogen (<2.0) mg/dL Ur Leukocyte Esterase (Negative) Urine RBC (0-5) /hpf Urine WBC (0-5) /hpf Ur Squamous Epith Cells (0-4) /hpf Urine Bacteria (None) /hpf Urine Mucus (None) /hpf Urine HCG, Qual (Not Detectd) Disposition <Bob Juarez - Last Filed: 10/24/23 15:35> Is patient prescribed a controlled substance at d/c from ED?: No Time of Disposition: 18:00 <Mariano Hart - Last Filed: 10/24/23 20:02> Clinical Impression: Acute pancreatitis, Alcohol abuse Disposition: ADMITTED IP TO THIS HOSP Condition: Fair
[2023-10-24 15:37] LABS: ALT 67 U/L (4-34); AST 185 U/L (14-36); African American GFR (CKD) 82 (>60 ml/min/1.73 sqM); Albumin 4.3 g/dL (3.5-5.0); Alkaline Phosphatase 228 U/L (38-126); Anion Gap 24 mmol/L; Blood Urea Nitrogen 30 mg/dL (7-17); Calcium 8.7 mg/dL (8.4-10.2); Carbon Dioxide 14 mmol/L (22-30); Chloride 91 mmol/L (98-107); Glucose 90 mg/dL (74-99); Non-African American GFR(CKD) 71 (>60 ml/min/1.73 sqM); Potassium 3.8 mmol/L (3.5-5.1); Sodium 129 mmol/L (137-145); Total Bilirubin 2.2 mg/dL (0.2-1.3); Total Protein 6.8 g/dL (6.3-8.2)
[2023-10-24 16:12] LABS: Lipase 7178 U/L (23-300)
[2023-10-24 16:23] LABS: Appearance,Urine Cloudy (Clear); Bacteria,Urine Occasional /hpf; Bilirubin,Urine 1+ (Negative); Blood,Urine Large (Negative); Color,Urine Yellow; Glucose,Urine (UA) Negative (Negative); Ketones,Urine 4+ (Negative); Leukocyte Esterase,Urine Large (Negative); Mucus,Urine Rare /hpf; Nitrite,Urine Negative (Negative); Protein,Urine 2+ (Negative); RBC,Urine >182 /hpf (0-5); Specific Gravity,Urine 1.019 (1.001-1.035); Squamous Epithelial Cell,Urine 7 /hpf (0-4); WBC,Urine 164 /hpf (0-5)
--- NOTE | 2023-10-24 17:01 | XR ---
EXAMINATION TYPE: XR KUB DATE OF EXAM: 10/24/2023 COMPARISON: None INDICATION: Abdomen pain TECHNIQUE: Single view abdomen upright view FINDINGS: Focal ileus within the left lower quadrant. Some prominent air-filled small bowel loops of differenti al air-fluid levels are present. Air is within the colon. Psoas margins are normal. No organomegaly is present. Calcifications are in the inferior pole right kidney measuring 0.7 and 0.6 cm. Adjacent to a ureteral stent are 2 small proximal ureteral calcifications measuring 0.5 and 0.4 cm. IMPRESSION: 1. Proximal left ureteral stones. 2. Inferior pole right renal stones. 3. Focal ileus left lower quadrant. Follow-up can be performed.
[2023-10-24] MEDS ORDERED: LORazepam 2 MG/ML INJ IV PRN ×3 (18:00)
[2023-10-24] MEDS ORDERED: THIAMINE 100 MG/ML 2 ML VIAL IM STA (18:00)
[2023-10-24] MEDS ORDERED: NALOXONE 0.4 MG/ML 1 ML VIAL IV PRN (18:00)
--- NOTE | 2023-10-24 18:57 | CT ---
EXAMINATION TYPE: CT abdomen pelvis w con DATE OF EXAM: 10/24/2023 COMPARISON: Abdomen 10/24/2023 INDICATION: abdominal pain, pancreatitis DLP: 496.4 mGycm, Automated exposure control for dose reduction was used. CONTRAST: 100ml mL of Isovue 300. Study performed without Oral Contrast TECHNIQUE: Axial images were obtained from above the diaphragm to the pubic rami in the axial plane a t 5 mm thick sections. Reconstructed images are reviewed on the computer in the coronal plane. FINDINGS: Limited CT sections are obtained the lung bases. The lung bases are clear. CT ABDOMEN:There is a small amount fluid near the tail of the pancreas which extends into the left pa racolic gutter. Some right paracolic gutter fluid is also present. Liver: There is moderate fatty infiltration throughout the liver. No biliary dilatation is evident. Spleen: Normal Pancreas: Normal , no suspicious inflammatory changes adjacent. Adrenal glands: The adrenal glands are normal. Gallbladder: Normal Kidneys: Ureteral stent is present on the left. There is moderate left hydronephrosis. Hydroureter is present. Stent extends into the urinary bladder. There is a nonobstructing 0.5 cm inferior pole right renal stone. Nonobstructing Mid right renal ston e is present measuring 0.6 cm. Punctate nonobstructing renal stone is in the mid right kidney. No sheyla picious left renal stones are evident. Calcification may be adjacent to the stent in the proximal ure ter, series 201 image 45. This appears more apparent on the plain films and in the coronal reconstruc lj images. There is a punctate nonobstructing renal stones inferior pole left kidney. Aorta: Vascular calcification is within the aorta. Inferior vena cava: Normal. CT PELVIS: Dilated fluid-filled small bowel loops are within the pelvis. Correlate for ileus. Some fluid is with in the rectosigmoid region. No obstruction is identified. Appendix: The appendix is not clearly identified. No dilated tubular structure or inflammatory change s evident. Urinary bladder: Normal. Genitourinary structures: Uterus and adnexa appear normal Osseous structures: No suspicious lytic or sclerotic lesions. IMPRESSION: 1. Focal ileus within the pelvis. 2. Left ureteral stent with proximal ureteral stones. 3. Additional nonobstructing renal stones present bilaterally. 4. Moderate left hydronephrosis. Ureteral stent is present.
[2023-10-24] MEDS: SODIUM CHLORIDE 0.9% 1,000 ML IV SCH (19:04)
[2023-10-24] MEDS: ONDANSETRON 4 MG/2 ML VIAL IVP PRN (19:09)
[2023-10-24] MEDS: HYDROmorphone 1 MG/ML 1 ML SYRINGE IVP PRN (20:16)
[2023-10-24] MEDS: levETIRAcetam IV 500 MG/5 ML VIAL IVP SCH (23:04)
[2023-10-24] MEDS: NICOTINE 14MG/24HR PATCH TRANSDERM SCH (23:04)
[2023-10-25] MEDS: HYDROmorphone 1 MG/ML 1 ML SYRINGE IVP PRN ×7 (00:57→23:08)
[2023-10-25] MEDS: ONDANSETRON 4 MG/2 ML VIAL IVP PRN ×3 (03:41→21:05)
[2023-10-25] MEDS: SODIUM CHLORIDE 0.9% 1,000 ML IV SCH ×3 (04:13→20:05)
[2023-10-25 07:58] LABS: HCG,Qualitative Serum Not Detected
[2023-10-25] MEDS: levETIRAcetam IV 500 MG/5 ML VIAL IVP SCH ×2 (08:39→19:59)
[2023-10-25] MEDS: NICOTINE 14MG/24HR PATCH TRANSDERM SCH (08:39)
[2023-10-25] MEDS: PANTOPRAZOLE 40 MG/10 ML VIAL IV SCH (08:39)
[2023-10-25 08:51] LABS: ALT 51 U/L (4-34); AST 141 U/L (14-36); African American GFR (CKD) >90 (>60 ml/min/1.73 sqM); Albumin/Globulin Ratio 1.3; Alkaline Phosphatase 168 U/L (38-126); Anion Gap 11 mmol/L; Blood Urea Nitrogen 20 mg/dL (7-17); Calcium 8.4 mg/dL (8.4-10.2); Carbon Dioxide 21 mmol/L (22-30); Chloride 102 mmol/L (98-107); Globulin 2.3 g/dL; Glucose 82 mg/dL (74-99); Non-African American GFR(CKD) >90 (>60 ml/min/1.73 sqM); Potassium 3.2 mmol/L (3.5-5.1); Sodium 134 mmol/L (137-145); Total Protein 5.3 g/dL (6.3-8.2)
[2023-10-25 09:10] LABS: Lipase 3748 U/L (23-300)
[2023-10-25 10:10] LABS: Basophils # (A) 0.01 X 10*3/uL (0.00-0.10); Basophils % (A) 0.1 %; Eosinophils # (A) 0.01 X 10*3/uL (0.04-0.35); Eosinophils % (A) 0.1 %; HGB 11.8 g/dL (12.0-15.0); Immature Platelet Fraction 4.3 % (1.1-6.1); Lymphocytes # (A) 0.73 X 10*3/uL (0.90-5.00); Lymphocytes % (A) 9.5 %; MCH 36.4 pg (27.0-32.0); MCHC 34.7 g/dL (32.0-37.0); MCV 104.9 FL (80.0-97.0); Mean Platelet Volume 10.3 FL (9.5-12.2); Monocytes # (A) 0.35 X 10*3/uL (0.20-1.00); Monocytes % (A) 4.6 %; NRBC Per 100 WBC 0 X 10*3/uL (0.00-0.01); Neutrophils # (A) 6.52 X 10*3/uL (1.80-7.70); Neutrophils % (A) 85.3 %; Platelet Count 69 X 10*3/uL (140-440); RBC 3.24 X 10*6/uL (4.10-5.20); RBC Morphology Normal (Normal); RDW 11.9 % (11.5-14.5); WBC 7.65 X 10*3/uL (4.50-10.00)
[2023-10-25] MEDS: THIAMINE 100 MG TAB PO SCH (11:09)
[2023-10-25] MEDS ORDERED: Magnesium Replacement Protocol 1 EACH MISC MISCELLANE PRN (11:25)
[2023-10-25] MEDS ORDERED: Potassium Replacement Protocol 1 EACH MISC MISCELLANE PRN (11:25)
[2023-10-25] MEDS ORDERED: POTASSIUM CHLORIDE ER 20 MEQ TAB.ER PO SCH (13:00)
[2023-10-25] MEDS: POTASSIUM CHLORIDE 10 MEQ in WATER FOR INJECTION 1 100ML.BAG IVPB SCH ×5 (13:46→23:47)
[2023-10-25] MEDS: KETOROLAC 15 MG/ML 1 ML VIAL IVP PRN ×2 (15:00→21:04)
[2023-10-25] MEDS: ACETAMINOPHEN SUPPOSITORY 650 MG SUPP RECTAL PRN (15:13)
--- NOTE | 2023-10-25 15:25 | P.HPIM ---
History of Present Illness This is an 33 years old female with past medical history of alcohol use disorder, right kidney stone. Presents because of abdominal pain with tenderness about 5-6/10 in severity, mainly in the epigastric and radiating to both sides Associated with diarrhea about 5-6 times per day With nausea no significant vomiting Associated with mild headache but no dizziness weakness or numbness She denies urinary complaints Denies chest pain or dyspnea She smokes cigarettes but currently she was counseled to quit and she agrees to the nicotine patch. 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 She was moderately tachycardic on admission and improved, afebrile She has leukocytosis of 14.5 came down to 7.6 and hemoglobin 15.3 down to 11.8 and platelet count 125 down to 69 With elements of hemodilution Sodium 129 went up to 134, BUN 30 down to 20 and creatinine 1.0 down to 0.6 [place] elevated and stranding done AST 185, 141, ALT 67, 51 Bilirubin 2.2 came back to normal at 1.0. Lipase elevated [address] of the abdomen and pelvis showing fluid near the pancreas with right kidney stone, Moderate left hydronephrosis ureteral stent is present Urine analysis is this abnormal Codecalcitonin is negative for 0.07 HCG is and detected Lactic acid is normal at 0.7. Review of Systems Review of systems CONSTITUTIONAL: No fever, no malaise, no fatigue. HEENT: No recent visual problems or hearing problems. Denied any sore throat. CARDIOVASCULAR: No orthopnea, PND, no palpitations, no syncope. PULMONARY: No shortness of breath, no cough, no hemoptysis. GASTROINTESTINAL: As above NEUROLOGICAL: No headaches, no weakness, no numbness. HEMATOLOGICAL: Denies any bleeding or petechiae. GENITOURINARY: Denies any burning micturition, frequency, or urgency. MUSCULOSKELETAL/RHEUMATOLOGICAL: Denies any joint pain, swelling, or any muscle pain. ENDOCRINE: Denies any polyuria or polydipsia. Past Medical History Past Medical History: Seizure Disorder Additional Past Medical History / Comment(s): kidney stones, epilespy, gastr itis. History of Any Multi-Drug Resistant Organisms: None Reported Past Surgical History: No Surgical Hx Reported Additional Past Surgical History / Comment(s): Ureter stent, lithotripsy. Past Anesthesia/Blood Transfusion Reactions: No Reported Reaction Smoking Status: Current every day smoker Medications and Allergies Home Medications Medication Instructions Recorded Confirmed Type Acetaminophen Tab [Tylenol] 650 mg PO Q6HR PRN tab 01/22/22 10/24/23 Rx Ibuprofen [Motrin Ib] 600 mg PO Q8H PRN 10/24/23 10/24/23 History QUEtiapine [SEROquel] 50 mg PO HS 10/24/23 10/24/23 History Tamsulosin HCl [Flomax] 0.4 mg PO DAILY PRN 10/24/23 10/24/23 History Allergies Allergy/AdvReac Type Severity Reaction Status Date / Time No Known Allergies Allergy Verified 10/24/23 18:51 Physical Exam Vitals: Vital Signs Temp Pulse Pulse Pulse Resp BP BP 10/25/23 07:47 98.1 F 81 18 136/84 10/25/23 01:26 98.7 F 92 18 130/85 10/24/23 20:00 98.8 F 96 20 135/90 10/24/23 18:56 98.4 F 85 18 122/84 10/24/23 16:21 104 H 18 134/94 10/24/23 14:20 97.9 F 114 H 20 138/88 Pulse Ox 10/25/23 07:47 99 10/25/23 01:26 97 10/24/23 20:00 98 10/24/23 18:56 100 10/24/23 16:21 100 10/24/23 14:20 100 Intake and Output 10/24/23 10/25/23 10/25/23 22:59 06:59 14:59 Other: Voiding Method Toilet Toilet # Voids 2 Weight 49.895 kg GENERAL: The patient is alert and oriented x3, not in any acute distress. Well developed, well nourished. HEENT: Pupils are round and equally reacting to light. EOMI. No scleral icterus. No conjunctival pallor. Normocephalic, atraumatic. No pharyngeal erythema. No thyromegaly. CARDIOVASCULAR: S1 and S2 present. No murmurs, rubs, or gallops. PULMONARY: Chest is clear to auscultation, no wheezing , no crackles. -ABDOMEN: Soft, the gastric tenderness with mild guarding, no rebound tenderness, nondistended, normoactive bowel sounds. No palpable organomegaly. MUSCULOSKELETAL: No joint swelling or deformity. EXTREMITIES: No cyanosis, clubbing, or pedal edema. NEUROLOGICAL: Gross neurological examination did not reveal any focal deficits. SKIN: No rashes. no petechiae. Results CBC & Chem 7: 10/25/23 07:02 10/25/23 07:02 Labs: Abnormal Lab Results - Last 24 Hours (Table) 10/24/23 10/24/23 10/24/23 Range/Units 14:47 14:47 14:47 WBC 14.5 H (3.8-10.6) k/uL RBC (4.10-5.20) X 10*6/uL Hgb (12.0-15.0) g/dL Hct (37.2-46.3) % MCV 107.9 H (80.0-100.0) fL MCH 36.7 H (25.0-35.0) pg Plt Count 125 L (150-450) k/uL Neutrophils # 13.3 H (1.3-7.7) k/uL Lymphocytes # 0.4 L (1.0-4.8) k/uL Eosinophils # (0.04-0.35) X 10*3/uL Sodium 129 L (137-145) mmol/L Potassium (3.5-5.1) mmol/L Chloride 91 L (98-107) mmol/L Carbon Dioxide 14 L (22-30) mmol/L BUN 30 H (7-17) mg/dL Total Bilirubin 2.2 H (0.2-1.3) mg/dL AST 185 H (14-36) U/L ALT 67 H (4-34) U/L Alkaline Phosphatase 228 H (38-126) U/L Total Protein (6.3-8.2) g/dL Albumin (3.5-5.0) g/dL Lipase 7178 H (23-300) U/L Urine Appearance Cloudy H (Clear) Urine Protein 2+ H (Negative) Urine Ketones 4+ H (Negative) Urine Blood Large H (Negative) Urine Bilirubin 1+ H (Negative) Ur Leukocyte Esterase Large H (Negative) Urine RBC >182 H (0-5) /hpf Urine WBC 164 H (0-5) /hpf Ur Squamous Epith Cells 7 H (0-4) /hpf Urine Bacteria Occasional H (None) /hpf Urine Mucus Rare H (None) /hpf 10/25/23 10/25/23 Range/Units 07:02 07:02 WBC (3.8-10.6) k/uL RBC 3.24 L (4.10-5.20) X 10*6/uL Hgb 11.8 L (12.0-15.0) g/dL Hct 34.0 L (37.2-46.3) % MCV 104.9 H (80.0-100.0) fL MCH 36.4 H (25.0-35.0) pg Plt Count 69 L (150-450) k/uL Neutrophils # (1.3-7.7) k/uL Lymphocytes # 0.73 L (1.0-4.8) k/uL Eosinophils # 0.01 L (0.04-0.35) X 10*3/uL Sodium 134 L (137-145) mmol/L Potassium 3.2 L (3.5-5.1) mmol/L Chloride (98-107) mmol/L Carbon Dioxide 21 L (22-30) mmol/L BUN 20 H (7-17) mg/dL Total Bilirubin (0.2-1.3) mg/dL AST 141 H (14-36) U/L ALT 51 H (4-34) U/L Alkaline Phosphatase 168 H (38-126) U/L Total Protein 5.3 L (6.3-8.2) g/dL Albumin 3.0 L (3.5-5.0) g/dL Lipase 3748 H (23-300) U/L Urine Appearance (Clear) Urine Protein (Negative) Urine Ketones (Negative) Urine Blood (Negative) Urine Bilirubin (Negative) Ur Leukocyte Esterase (Negative) Urine RBC (0-5) /hpf Urine WBC (0-5) /hpf Ur Squamous Epith Cells (0-4) /hpf Urine Bacteria (None) /hpf Urine Mucus (None) /hpf Thrombosis Risk Factor Assmnt - Choose All That Apply Any of the Below Risk Factors Present?: No Other Risk Factors: No Thrombosis Risk Factor Assessment Level: Very Low Risk Assessment and Plan Assessment: Acute pancreatitis, most likely alcoholic effect Abdominal pain and tenderness, secondary to above Asymptomatic bacteriuria Anemia and thrombocytopenia, most likely secondary to alcohol effect Moderate hydronephrosis with left urinary strength and bilateral nonobstructing kidney stones Alcohol use disorder Moderate hyponatremia, hypovolemic. Improving Headache could be tension headache, mild with no Plan: Continue with normal saline and increased rate 1:30 up to 200 Pain medication Bowel rest Surgical team consult Neurology consult Labs and medication were reviewed.. Continue same treatment. Continue with symptomatic treatment. Resume home medication. Monitor labs and vitals. DVT and GI prophylaxis. Further recommendations as per clinical course of the patient DVT prophylaxis: hold Subcutaneous heparin given her worsening hemoglobin and thrombocytopenia GI Prophylaxis: Ppi Prognosis is guarded
[2023-10-25] MEDS ORDERED: KETOROLAC 15 MG/ML 1 ML VIAL IVP SCH (18:00)
[2023-10-26] MEDS: POTASSIUM CHLORIDE 10 MEQ in WATER FOR INJECTION 1 100ML.BAG IVPB SCH (00:37)
[2023-10-26] MEDS: diphenhydrAMINE 25 MG CAP PO PRN ×3 (00:38→22:57)
[2023-10-26] MEDS: SODIUM CHLORIDE 0.9% 1,000 ML IV SCH ×3 (00:55→19:57)
[2023-10-26] MEDS: HYDROmorphone 1 MG/ML 1 ML SYRINGE IVP PRN ×6 (01:59→21:11)
[2023-10-26] MEDS: KETOROLAC 15 MG/ML 1 ML VIAL IVP PRN ×4 (03:08→22:16)
[2023-10-26] MEDS: ACETAMINOPHEN SUPPOSITORY 650 MG SUPP RECTAL PRN (03:26)
[2023-10-26] MEDS: ONDANSETRON 4 MG/2 ML VIAL IVP PRN ×2 (05:58→18:06)
[2023-10-26] MEDS: NICOTINE 14MG/24HR PATCH TRANSDERM SCH (08:14)
[2023-10-26] MEDS: PANTOPRAZOLE 40 MG/10 ML VIAL IV SCH (08:14)
[2023-10-26] MEDS: levETIRAcetam IV 500 MG/5 ML VIAL IVP SCH (08:14)
[2023-10-26] MEDS: THIAMINE 100 MG TAB PO SCH (08:14)
[2023-10-26 08:48] LABS: Basophils % (A) 0 %; Eosinophils # (A) 0.1 k/uL (0-0.7); Eosinophils % (A) 1 %; HCT 31.6 % (34.0-46.0); Lymphocytes # (A) 0.8 k/uL (1.0-4.8); Lymphocytes % (A) 17 %; MCH 37.7 pg (25.0-35.0); MCHC 34.7 g/dL (31.0-37.0); MCV 108.9 fL (80.0-100.0); Macrocytosis Moderate; Mean Platelet Volume 7.7; Monocytes # (A) 0.2 k/uL (0-1.0); Monocytes % (A) 3 %; Neutrophils # (A) 3.6 k/uL (1.3-7.7); Neutrophils % (A) 78 %; WBC 4.6 k/uL (3.8-10.6)
[2023-10-26 08:59] LABS: African American GFR (CKD) >90 (>60 ml/min/1.73 sqM); Anion Gap 5 mmol/L; Blood Urea Nitrogen 6 mg/dL (7-17); Carbon Dioxide 24 mmol/L (22-30); Chloride 105 mmol/L (98-107); Glucose 86 mg/dL (74-99); Magnesium 1.5 mg/dL (1.6-2.3); Non-African American GFR(CKD) >90 (>60 ml/min/1.73 sqM); Potassium 3.5 mmol/L (3.5-5.1); Sodium 134 mmol/L (137-145)
[2023-10-26 10:10] LABS: Platelet Count 45 k/uL (150-450)
[2023-10-26] MEDS ORDERED: FAMOTIDINE 20 MG/2 ML VIAL IV STA (13:38)
[2023-10-26] MEDS ORDERED: methylPREDNISolone SOD SUCCI 125 MG/2 ML VIAL IV STA (13:38)
[2023-10-26] MEDS ORDERED: diphenhydrAMINE 50 MG/ML 1 ML VIAL IVP STA (13:38)
--- NOTE | 2023-10-26 14:42 | P.GSCN ---
History of Present Illness Consult date: 10/26/23 Reason for Consult: Left ureteral stone, retained stent History of present illness: This is a 33-year-old female admitted to the hospital with alcoholic pancreatitis. She does have history of noncompliance. Urology is consulted for finding of retained left ureteral stent. She indicated that she was seen at [facility] in February, and subsequently underwent a left sided stent insertion for a ureteral stone. She has not followed up with her urologist since that time per patient due to scheduling conflicts and insurance issues. She has been having intermittent gross hematuria secondary to her stone. Urine analysis was consistent with a ureteral stent. She is not having any dysuria urinary frequency or urgency. Denies any flank pain. On CT there is evidence of a left ureteral stent, and the stone can be seen along the proximal end of the stent. At this time she wishes to proceed with stone removal during this hospital admission Review of Systems - Constitutional Denies chills, Denies fever - Cardiovascular Denies chest pain, Denies shortness of breath - Respiratory Denies cough, Denies 7 - Gastrointestinal Reports as per HPI - Genitourinary Genitourinary: Reports hematuria, Denies dysuria, Denies flank pain Past Medical History Past Medical History: Seizure Disorder Additional Past Medical History / Comment(s): kidney stones, epilespy, gastritis. History of Any Multi-Drug Resistant Organisms: None Reported Past Surgical History: No Surgical Hx Reported Additional Past Surgical History / Comment(s): Ureter stent, lithotripsy. Past Anesthesia/Blood Transfusion Reactions: No Reported Reaction Smoking Status: Current every day smoker Medications and Allergies Home Medications Medication Instructions Recorded Confirmed Type Acetaminophen Tab [Tylenol] 650 mg PO Q6HR PRN tab 01/22/22 10/24/23 Rx Ibuprofen [Motrin Ib] 600 mg PO Q8H PRN 10/24/23 10/24/23 History QUEtiapine [SEROquel] 50 mg PO HS 10/24/23 10/24/23 History Tamsulosin HCl [Flomax] 0.4 mg PO DAILY PRN 10/24/23 10/24/23 History levETIRAcetam [Keppra] 500 mg PO BID 10/26/23 10/26/23 History Allergies Allergy/AdvReac Type Severity Reaction Status Date / Time ceftriaxone [From Rocephin] Allergy Rash/Hives Verified 10/26/23 13:41 Surgical - Exam Vital Signs Temp Pulse Resp BP Pulse Ox 97.9 F 114 H 20 138/88 100 10/24/23 14:20 10/24/23 14:20 10/24/23 14:20 10/24/23 14:20 10/24/23 14:20 - General no distress, no pain - Eyes normal ocular movement, no pale - ENT normal nares, normal mucosa - Respiratory normal expansion, normal respiratory effort - Abdomen Abdomen: soft, non tender, no distended - Psychiatric oriented to time, oriented to person, oriented to place Results - Labs 10/26/23 07:49 10/26/23 07:49 Abnormal Lab Results - Last 24 Hours (Table) 10/25/23 10/26/23 10/26/23 Range/Units 18:38 07:49 07:49 RBC 2.90 L (3.80-5.40) m/uL Hgb 11.0 L D (11.4-16.0) gm/dL Hct 31.6 L (34.0-46.0) % MCV 108.9 H (80.0-100.0) fL MCH 37.7 H (25.0-35.0) pg Plt Count 45 L D (150-450) k/uL Lymphocytes # 0.8 L (1.0-4.8) k/uL Sodium 134 L (137-145) mmol/L Potassium 3.3 L (3.5-5.1) mmol/L BUN 6 L (7-17) mg/dL Creatinine 0.38 L (0.52-1.04) mg/dL Calcium 8.0 L (8.4-10.2) mg/dL Magnesium 1.5 L (1.6-2.3) mg/dL Diabetes panel 10/25/23 10/26/23 Range/Units 18:38 07:49 Sodium 134 L (137-145) mmol/L Potassium 3.3 L 3.5 (3.5-5.1) mmol/L Chloride 105 (98-107) mmol/L Carbon Dioxide 24 (22-30) mmol/L BUN 6 L (7-17) mg/dL Creatinine 0.38 L (0.52-1.04) mg/dL Glucose 86 (74-99) mg/dL Calcium 8.0 L (8.4-10.2) mg/dL Calcium panel 10/26/23 Range/Units 07:49 Calcium 8.0 L (8.4-10.2) mg/dL Pituitary panel 10/25/23 10/26/23 Range/Units 18:38 07:49 Sodium 134 L (137-145) mmol/L Potassium 3.3 L 3.5 (3.5-5.1) mmol/L Chloride 105 (98-107) mmol/L Carbon Dioxide 24 (22-30) mmol/L BUN 6 L (7-17) mg/dL Creatinine 0.38 L (0.52-1.04) mg/dL Glucose 86 (74-99) mg/dL Calcium 8.0 L (8.4-10.2) mg/dL Adrenal panel 10/25/23 10/26/23 Range/Units 18:38 07:49 Sodium 134 L (137-145) mmol/L Potassium 3.3 L 3.5 (3.5-5.1) mmol/L Chloride 105 (98-107) mmol/L Carbon Dioxide 24 (22-30) mmol/L BUN 6 L (7-17) mg/dL Creatinine 0.38 L (0.52-1.04) mg/dL Glucose 86 (74-99) mg/dL Calcium 8.0 L (8.4-10.2) mg/dL - Imaging US - abdomen: image reviewed (Left-sided ureteral stent, stone seen along the proximal curl of this stent) Assessment and Plan Assessment: 33-year-old female with history of retained stent and a left-sided proximal stone, the stone has been present for 6 months, it was placed for ureteral stone at [facility]. I did have very prolonged discussion with her that stent cannot stay in indefinitely and ideally does need to be removed within 3 to 4 months from time of stent insertion. She would like her stone to be addressed during this hospital admission. Discussed risk of renal loss with prolonged stent placement. She does have a history of alcoholism, and noncompliance. She is at high risk of having a prolonged retained stent. Her urine analysis is consistent with having a ureteral stent, but she is not having UTI symptoms. I will start her on IV antibiotics, will continue IV antibiotics for 24 to 48 hours and at this time we will tentatively schedule her for a left-sided ureteroscopy with homing laser and stent removal on October 28 -She developed an allergic reaction to ceftriaxone, she will be started on IV Levaquin -OR for left-sided ureteroscopy with holmium laser and stent removal on October 28
--- NOTE | 2023-10-26 16:54 | P.PN ---
Subjective This is an 33 years old female with past medical history of alcohol use disorder, right kidney stone. Presents because of abdominal pain with tenderness about 5-6/10 in severity, mainly in the epigastric and radiating to both sides Associated with diarrhea about 5-6 times per day With nausea no significant vomiting Associated with mild headache but no dizziness weakness or numbness She denies urinary complaints Denies chest pain or dyspnea She smokes cigarettes but currently she was counseled to quit and she agrees to the nicotine patch. 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 She was moderately tachycardic on admission and improved, afebrile She has leukocytosis of 14.5 came down to 7.6 and hemoglobin 15.3 down to 11.8 and platelet count 125 down to 69 With elements of hemodilution Sodium 129 went up to 134, BUN 30 down to 20 and creatinine 1.0 down to 0.6 [place] elevated and stranding done AST 185, 141, ALT 67, 51 Bilirubin 2.2 came back to normal at 1.0. Lipase elevated [address] of the abdomen and pelvis showing fluid near the pancreas with right kidney stone, Moderate left hydronephrosis ureteral stent is present Urine analysis is this abnormal Codecalcitonin is negative for 0.07 HCG is and detected Lactic acid is normal at 0.7. 10/26/2023 Patient her abdominal pain and tenderness are improving, she tolerates clear liquid diet and today patient's wants to advance her diet little more so placed on full liquid diet No vomiting, no diarrhea. No chest pain or dyspnea Her hemoglobin is 11, platelet count came down to 45, patient currently not on anticoagulation for risk of anemia and thrombocytopenia which is most likely thought secondary to alcohol affect No evidence of infection with no fever and pro calcitonin is negative However patient received 1 dose of IV Rocephin for abnormal urine analysis is related to prolonged ureteral stent, steroids IV Solu-Medrol, Pepcid and IV Benadryl provided and antibiotics changed to IV Levaquin Neurology input is appreciated and patient is planned to undergo stent removal on 10/28 after 2 days Patient currently remains on normal saline with 130 mL/h with low CIWA score and no strong evidence of alcohol withdrawal currently Review of systems CONSTITUTIONAL: No fever, no malaise, no fatigue. HEENT: No recent visual problems or hearing problems. Denied any sore throat. CARDIOVASCULAR: No orthopnea, PND, no palpitations, no syncope. PULMONARY: No shortness of breath, no cough, no hemoptysis. NEUROLOGICAL: No headaches, no weakness, no numbness. HEMATOLOGICAL: Denies any bleeding or petechiae. GENITOURINARY: Denies any burning micturition, frequency, or urgency. Active Medications Generic Name Dose Route Start Last Admin Trade Name Freq PRN Reason Stop Dose Admin Acetaminophen 650 mg 10/26/23 10:47 Acetaminophen Tab 325 Mg Tab PO Q6HR PRN Fever and/ or Pain Diphenhydramine HCl 25 mg 10/26/23 00:06 10/26/23 09:14 Diphenhydramine 25 Mg Cap PO 25 mg BID PRN Administration Itching Hydromorphone HCl 1 mg 10/24/23 18:00 10/26/23 14:04 Hydromorphone 1 Mg/Ml 1 Ml Syringe IVP 1 mg Q3HR PRN Administration Severe Pain (Scale 7 to 10) Sodium Chloride 1,000 mls @ 130 mls/hr 10/24/23 18:00 10/26/23 08:24 Saline 0.9% IV 130 mls/hr .Q7H42M MELISSA Administration Ceftriaxone Sodium 2 gm/ 50 mls @ 100 mls/hr 10/26/23 12:45 10/26/23 12:52 Sodium Chloride IVPB 100 mls/hr Q24HR MELISSA Administration Protocol Levofloxacin 500 mg/ IV 100 mls @ 100 mls/hr 10/27/23 09:00 Solution IVPB Q24H MELISSA Protocol Magnesium Sulfate/Dextrose 1 100 mls @ 100 mls/hr 10/26/23 16:48 gm/ IV Solution IVPB 10/26/23 18:47 Q1H MELISSA Ketorolac Tromethamine 15 mg 10/25/23 14:57 10/26/23 15:07 Ketorolac 15 Mg/Ml 1 Ml Vial IVP 10/30/23 14:38 15 mg Q6HR PRN Administration Pain Levetiracetam 500 mg 10/26/23 21:00 Levetiracetam 500 Mg Tab PO Q12HR MELISSA Lorazepam 2 mg 10/24/23 18:00 Lorazepam 2 Mg/Ml Inj IV 10/26/23 18:01 Q10M PRN CIWA 16 or higher Lorazepam 1 mg 10/24/23 18:00 Lorazepam 2 Mg/Ml Inj IV Q2HR PRN CIWA 8 or 9 Lorazepam 1 mg 10/24/23 18:00 Lorazepam 2 Mg/Ml Inj IV Q1HR PRN CIWA 10 to 15 Miscellaneous Information 1 each 10/25/23 11:25 Potassium Replacement Protocol 1 Each Misc MISCELLANE DAILY PRN Per Protocol Protocol Miscellaneous Information 1 each 10/25/23 11:25 Magnesium Replacement Protocol 1 Each Misc MISCELLANE DAILY PRN Per Protocol Protocol Naloxone HCl 0.2 mg 10/24/23 18:00 Naloxone 0.4 Mg/Ml 1 Ml Vial IV Q2M PRN Opioid Reversal Nicotine 1 patch 10/24/23 23:00 10/26/23 08:14 Nicotine 14mg/24hr Patch TRANSDERM 1 patch DAILY MELISSA Administration Ondansetron HCl 4 mg 10/24/23 18:00 10/26/23 05:58 Ondansetron 4 Mg/2 Ml Vial IVP 4 mg Q8HR PRN Administration Nausea And Vomiting Pantoprazole Sodium 40 mg 10/25/23 09:00 10/26/23 08:14 Pantoprazole 40 Mg/10 Ml Vial IV 40 mg DAILY MELISSA Administration Thiamine HCl 100 mg 10/25/23 09:00 10/26/23 08:14 Thiamine 100 Mg Tab PO 100 mg DAILY MELISSA Administration Objective - Vital Signs Vital signs: Vital Signs Temp 98.9 F 10/26/23 06:58 Pulse 75 10/26/23 06:58 Resp 17 10/26/23 06:58 BP 124/81 10/26/23 06:58 Pulse Ox 97 10/26/23 06:58 FiO2 Intake & Output 10/25/23 10/26/23 10/26/23 18:59 06:59 18:59 Intake Total 1900 Balance 1900 Intake: Intake, IV Titration 1900 Amount Potassium Chloride 10 meq 400 In Water For Injection 1 100ml.bag @ 100 mls/hr IVPB Q1HR MELISSA Rx#: [id number] Sodium Chloride 0.9% 1, 1500 000 ml @ 130 mls/hr IV . Q7H42M MELISSA Rx#:[id number] Other: Voiding Method Toilet Toilet Toilet # Voids 2 1 - Labs CBC & Chem 7: 10/26/23 07:49 10/26/23 07:49 Labs: Abnormal Lab Results - Last 24 Hours (Table) 10/25/23 10/26/23 10/26/23 Range/Units 18:38 07:49 07:49 RBC 2.90 L (3.80-5.40) m/uL Hgb 11.0 L D (11.4-16.0) gm/dL Hct 31.6 L (34.0-46.0) % MCV 108.9 H (80.0-100.0) fL MCH 37.7 H (25.0-35.0) pg Plt Count 45 L D (150-450) k/uL Lymphocytes # 0.8 L (1.0-4.8) k/uL Sodium 134 L (137-145) mmol/L Potassium 3.3 L (3.5-5.1) mmol/L BUN 6 L (7-17) mg/dL Creatinine 0.38 L (0.52-1.04) mg/dL Calcium 8.0 L (8.4-10.2) mg/dL Magnesium 1.5 L (1.6-2.3) mg/dL Assessment and Plan Assessment: Acute pancreatitis, most likely alcoholic effect Abdominal pain and tenderness, secondary to above Asymptomatic bacteriuria Anemia and thrombocytopenia, most likely secondary to alcohol effect Moderate hydronephrosis with left urinary strength and bilateral nonobstructing kidney stones Alcohol use disorder Moderate hyponatremia, hypovolemic. Improving Headache could be tension headache, mild with no Plan: Continue with normal saline at a rate 130 Pain medication Bowel rest advance diet as tolerated, currently on liquid diet urology consult for ureteral stent removal on 10/28 Labs and medication were reviewed.. Continue same treatment. Continue with symptomatic treatment. Resume home medication. Monitor labs and vitals. DVT and GI prophylaxis. Further recommendations as per clinical course of the patient DVT prophylaxis: hold Subcutaneous heparin given her worsening hemoglobin and thrombocytopenia GI Prophylaxis: Ppi Prognosis is guarded
[2023-10-26] MEDS: MAGNESIUM SULFATE-D5W PMX 1 GM in DEXTROSE/WATER 1 100ML.BAG IVPB SCH ×2 (17:20→18:52)
[2023-10-26] MEDS: levETIRAcetam 500 MG TAB PO SCH (19:57)
[2023-10-27] MEDS: HYDROmorphone 1 MG/ML 1 ML SYRINGE IVP PRN ×8 (00:46→23:02)
[2023-10-27] MEDS: SODIUM CHLORIDE 0.9% 1,000 ML IV SCH ×4 (02:53→19:53)
[2023-10-27] MEDS: ACETAMINOPHEN TAB 325 MG TAB PO PRN ×2 (02:55→13:52)
[2023-10-27] MEDS: ONDANSETRON 4 MG/2 ML VIAL IVP PRN ×3 (03:54→20:52)
[2023-10-27] MEDS: KETOROLAC 15 MG/ML 1 ML VIAL IVP PRN (05:58)
--- NOTE | 2023-10-27 07:58 | P.PN ---
Subjective Progress Note Date: 10/27/23 The patient is in the hospital with abdominal pain. She has a retained double-J catheter from [facility] with stone. She is feeling all right Objective - Vital Signs Vital signs: Vital Signs Temp 99.0 F 10/27/23 02:00 Pulse 76 10/27/23 02:00 Resp 18 10/27/23 02:00 BP 152/91 10/27/23 02:00 Pulse Ox 98 10/27/23 02:00 FiO2 Intake & Output 10/26/23 10/27/23 10/27/23 18:59 06:59 18:59 Intake Total 590 Balance 590 Intake: Oral 590 Other: Voiding Method Toilet Toilet # Voids 3 2 # Bowel Movements 2 - Labs CBC & Chem 7: 10/26/23 07:49 10/26/23 07:49 Labs: Abnormal Lab Results - Last 24 Hours (Table) 10/26/23 10/26/23 Range/Units 07:49 07:49 RBC 2.90 L (3.80-5.40) m/uL Hgb 11.0 L D (11.4-16.0) gm/dL Hct 31.6 L (34.0-46.0) % MCV 108.9 H (80.0-100.0) fL MCH 37.7 H (25.0-35.0) pg Plt Count 45 L D (150-450) k/uL Lymphocytes # 0.8 L (1.0-4.8) k/uL Sodium 134 L (137-145) mmol/L BUN 6 L (7-17) mg/dL Creatinine 0.38 L (0.52-1.04) mg/dL Calcium 8.0 L (8.4-10.2) mg/dL Magnesium 1.5 L (1.6-2.3) mg/dL Assessment and Plan Assessment: Impression: Ureteral calculus with retained stent, left Recommendations: The patient will have stone and stent removal tomorrow by
[2023-10-27] MEDS: diphenhydrAMINE 25 MG CAP PO PRN (08:14)
[2023-10-27] MEDS: PANTOPRAZOLE 40 MG/10 ML VIAL IV SCH (08:14)
[2023-10-27] MEDS: THIAMINE 100 MG TAB PO SCH (09:16)
[2023-10-27] MEDS: NICOTINE 14MG/24HR PATCH TRANSDERM SCH (09:16)
[2023-10-27] MEDS: levETIRAcetam 500 MG TAB PO SCH ×2 (09:16→19:59)
[2023-10-27] MEDS: LEVOFLOXACIN 500MG-D5W PMX 500 MG in DEXTROSE/WATER 1 100ML.BAG IVPB SCH (09:16)
[2023-10-27] MEDS ORDERED: diphenhydrAMINE 25 MG CAP PO PRN (10:29)
[2023-10-27 12:00] VITALS: BMI 19.5
[2023-10-27 12:33] LABS: Basophils # (A) 0.01 X 10*3/uL (0.00-0.10); Basophils % (A) 0.2 %; Eosinophils # (A) 0.02 X 10*3/uL (0.04-0.35); Eosinophils % (A) 0.3 %; HCT 31.4 % (37.2-46.3); HGB 10.8 g/dL (12.0-15.0); Immature Platelet Fraction 7.3 % (1.1-6.1); Lymphocytes # (A) 0.86 X 10*3/uL (0.90-5.00); Lymphocytes % (A) 14.7 %; MCH 36.7 pg (27.0-32.0); MCHC 34.4 g/dL (32.0-37.0); MCV 106.8 FL (80.0-97.0); Macrocytosis (M) 2+; Monocytes # (A) 0.29 X 10*3/uL (0.20-1.00); Monocytes % (A) 4.9 %; NRBC Per 100 WBC 0 X 10*3/uL (0.00-0.01); Neutrophils # (A) 4.67 X 10*3/uL (1.80-7.70); Neutrophils % (A) 79.6 %; Platelet Count 59 X 10*3/uL (140-440); RBC 2.94 X 10*6/uL (4.10-5.20); RDW 11.5 % (11.5-14.5); WBC 5.87 X 10*3/uL (4.50-10.00)
[2023-10-27 12:35] LABS: ALT 42 U/L (8-44); AST 101 U/L (13-35); Albumin 3.1 g/dL (3.8-4.9); Albumin/Globulin Ratio 1.94 Ratio (1.60-3.17); Alkaline Phosphatase 142 U/L (41-126); BUN/Creat Ratio 11.67 Ratio (12.00-20.00); Blood Urea Nitrogen 3.5 mg/dL (9.0-27.0); Calcium 8.2 mg/dL (8.7-10.3); Carbon Dioxide 24.7 mmol/L (21.6-31.8); Chloride 104 mmol/L (96-109); Globulin 1.6 g/dL (1.6-3.3); Glucose 106 mg/dL (70-110); Magnesium 1.8 mg/dL (1.5-2.4); Potassium 3.1 mmol/L (3.5-5.5); Sodium 138 mmol/L (135-145); Total Bilirubin 0.6 mg/dL (0.3-1.2); Total Protein 4.7 g/dL (6.2-8.2)
[2023-10-27] MEDS ORDERED: Potassium Replacement Protocol 1 EACH MISC MISCELLANE PRN (12:52)
[2023-10-27] MEDS: POTASSIUM CHLORIDE ER 20 MEQ TAB.ER PO SCH ×4 (13:06→21:52)
[2023-10-27] MEDS: FOLIC ACID 1 MG TAB PO SCH (15:51)
[2023-10-27] MEDS: HYDROcodone/APAP 5-325MG 1 EACH TAB PO PRN ×2 (15:52→21:52)
--- NOTE | 2023-10-27 17:36 | P.PN ---
Subjective This is an 33 years old female with past medical history of alcohol use disorder, right kidney stone. Presents because of abdominal pain with tenderness about 5-6/10 in severity, mainly in the epigastric and radiating to both sides Associated with diarrhea about 5-6 times per day With nausea no significant vomiting Associated with mild headache but no dizziness weakness or numbness She denies urinary complaints Denies chest pain or dyspnea She smokes cigarettes but currently she was counseled to quit and she agrees to the nicotine patch. 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 She was moderately tachycardic on admission and improved, afebrile She has leukocytosis of 14.5 came down to 7.6 and hemoglobin 15.3 down to 11.8 and platelet count 125 down to 69 With elements of hemodilution Sodium 129 went up to 134, BUN 30 down to 20 and creatinine 1.0 down to 0.6 [place] elevated and stranding done AST 185, 141, ALT 67, 51 Bilirubin 2.2 came back to normal at 1.0. Lipase elevated [address] of the abdomen and pelvis showing fluid near the pancreas with right kidney stone, Moderate left hydronephrosis ureteral stent is present Urine analysis is this abnormal Codecalcitonin is negative for 0.07 HCG is and detected Lactic acid is normal at 0.7. 10/26/2023 Patient her abdominal pain and tenderness are improving, she tolerates clear liquid diet and today patient's wants to advance her diet little more so placed on full liquid diet No vomiting, no diarrhea. No chest pain or dyspnea Her hemoglobin is 11, platelet count came down to 45, patient currently not on anticoagulation for risk of anemia and thrombocytopenia which is most likely thought secondary to alcohol affect No evidence of infection with no fever and pro calcitonin is negative However patient received 1 dose of IV Rocephin for abnormal urine analysis is related to prolonged ureteral stent, steroids IV Solu-Medrol, Pepcid and IV Benadryl provided and antibiotics changed to IV Levaquin Neurology input is appreciated and patient is planned to undergo stent removal on 10/28 after 2 days Patient currently remains on normal saline with 130 mL/h with low CIWA score and no strong evidence of alcohol withdrawal currently 10/27/2023 This morning patient was doing well, she has less abdominal pain and tenderness, she was thinking she is improving with no nausea vomiting Patient was tolerating diet and requesting to be advanced more. She said she took 2 pieces of fracture closed and they can and let us and she feels fine since she wants to eat more However by the afternoon and received a call from the bedside nurse the patient pain is worse and requesting more pain medication which is provided. Given her worsening pain we will going to order repeat CAT scan of the abdomen and pelvis with IV contrast Patient also planned to undergo ureteral stent removal tomorrow with urology team, Patient remains on normal saline with 130 mL/h No signs of alcohol withdrawal Patient also on Levaquin for urological procedure and possible urinary tract infection Patient history the received 1 dose of Rocephin and developed rash (patient showed me a picture of her rash which was significantly worse yesterday) compared today her rash is almost completely resolved however patient still complains from patient and Benadryl dose was increased We will continue monitoring closely and follow-up CAT scan of the abdomen Review of systems CONSTITUTIONAL: No fever, no malaise, no fatigue. HEENT: No recent visual problems or hearing problems. Denied any sore throat. CARDIOVASCULAR: No orthopnea, PND, no palpitations, no syncope. PULMONARY: No shortness of breath, no cough, no hemoptysis. NEUROLOGICAL: No headaches, no weakness, no numbness. HEMATOLOGICAL: Denies any bleeding or petechiae. GENITOURINARY: Denies any burning micturition, frequency, or urgency. Active Medications Generic Name Dose Route Start Last Admin Trade Name Freq PRN Reason Stop Dose Admin Acetaminophen 650 mg 10/26/23 10:47 10/27/23 13:52 Acetaminophen Tab 325 Mg Tab PO 650 mg Q6HR PRN Administration Fever and/ or Pain Hydrocodone Bitart/Acetaminophen 1 each 10/27/23 15:44 10/27/23 15:52 Hydrocodone/Apap 5-325mg 1 Each Tab PO 1 each Q6HR PRN Administration Pain Diphenhydramine HCl 25 mg 10/27/23 10:29 Diphenhydramine 25 Mg Cap PO TID PRN Itching Folic Acid 1 mg 10/27/23 15:45 10/27/23 15:51 Folic Acid 1 Mg Tab PO 1 mg DAILY MELISSA Administration Hydromorphone HCl 1 mg 10/24/23 18:00 10/27/23 16:58 Hydromorphone 1 Mg/Ml 1 Ml Syringe IVP 1 mg Q3HR PRN Administration Severe Pain (Scale 7 to 10) Sodium Chloride 1,000 mls @ 130 mls/hr 10/24/23 18:00 10/27/23 16:23 Saline 0.9% IV Not Given .Q7H42M MELISSA Ceftriaxone Sodium 2 gm/ 50 mls @ 100 mls/hr 10/26/23 12:45 10/27/23 08:14 Sodium Chloride IVPB Not Given Q24HR MELISSA Protocol Levofloxacin 500 mg/ IV 100 mls @ 100 mls/hr 10/27/23 09:00 10/27/23 09:16 Solution IVPB 100 mls/hr Q24H MELISSA Administration Protocol Levetiracetam 500 mg 10/26/23 21:00 10/27/23 09:16 Levetiracetam 500 Mg Tab PO 500 mg Q12HR MELISSA Administration Lorazepam 1 mg 10/24/23 18:00 Lorazepam 2 Mg/Ml Inj IV Q2HR PRN CIWA 8 or 9 Lorazepam 1 mg 10/24/23 18:00 Lorazepam 2 Mg/Ml Inj IV Q1HR PRN CIWA 10 to 15 Miscellaneous Information 1 each 10/25/23 11:25 Potassium Replacement Protocol 1 Each Misc MISCELLANE DAILY PRN Per Protocol Protocol Miscellaneous Information 1 each 10/25/23 11:25 Magnesium Replacement Protocol 1 Each Misc MISCELLANE DAILY PRN Per Protocol Protocol Miscellaneous Information 1 each 10/27/23 12:52 Potassium Replacement Protocol 1 Each Misc MISCELLANE DAILY PRN Per Protocol Protocol Naloxone HCl 0.2 mg 10/24/23 18:00 Naloxone 0.4 Mg/Ml 1 Ml Vial IV Q2M PRN Opioid Reversal Nicotine 1 patch 10/24/23 23:00 10/27/23 09:16 Nicotine 14mg/24hr Patch TRANSDERM 1 patch DAILY MELISSA Administration Ondansetron HCl 4 mg 10/24/23 18:00 10/27/23 13:06 Ondansetron 4 Mg/2 Ml Vial IVP 4 mg Q8HR PRN Administration Nausea And Vomiting Pantoprazole Sodium 40 mg 10/25/23 09:00 10/27/23 08:14 Pantoprazole 40 Mg/10 Ml Vial IV 40 mg DAILY MELISSA Administration Thiamine HCl 100 mg 10/25/23 09:00 10/27/23 09:16 Thiamine 100 Mg Tab PO 100 mg DAILY MELISSA Administration Objective - Vital Signs Vital signs: Vital Signs Temp 98.4 F 10/27/23 08:00 Pulse 74 10/27/23 08:00 Resp 17 10/27/23 08:00 BP 131/84 10/27/23 08:00 Pulse Ox 99 10/27/23 08:00 FiO2 Intake & Output 10/26/23 10/27/23 10/27/23 18:59 06:59 18:59 Intake Total 590 Balance 590 Intake: Oral 590 Other: Voiding Method Toilet Toilet Toilet # Voids 3 2 # Bowel Movements 2 - Exam GENERAL: The patient is alert and oriented x3, not in any acute distress. Well developed, well nourished. HEENT: Pupils are round and equally reacting to light. EOMI. No scleral icterus. No conjunctival pallor. Normocephalic, atraumatic. No pharyngeal erythema. No thyromegaly. CARDIOVASCULAR: S1 and S2 present. No murmurs, rubs, or gallops. PULMONARY: Chest is clear to auscultation, no wheezing , no crackles. ABDOMEN: Soft, epigastric tenderness with no guarding or rebound tenderness, nondistended, normoactive bowel sounds. No palpable organomegaly. MUSCULOSKELETAL: No joint swelling or deformity. EXTREMITIES: No cyanosis, clubbing, or pedal edema. NEUROLOGICAL: Gross neurological examination did not reveal any focal deficits. SKIN: No rashes. no petechiae. - Labs CBC & Chem 7: 10/27/23 07:00 10/27/23 06:57 Assessment and Plan Assessment: Acute pancreatitis, most likely alcoholic effect Abdominal pain and tenderness, secondary to above Moderate hydronephrosis with left urinary stent and bilateral nonobstructing kidney stones Asymptomatic bacteriuria, with urinary tract infection is still suspected and needs to be treated as patient is going for urological procedure ALLERGIC reaction to ceftriaxone, patient informed not to use Rocephin again and she agrees Anemia and thrombocytopenia, most likely secondary to alcohol effect Alcohol use disorder Moderate hyponatremia, hypovolemic. Improving Headache could be tension headache, mild with no Plan: Continue with normal saline at a rate 130 Pain medication Repeat CAT scan of the abdomen and pelvis Bowel rest advance diet as tolerated, currently on liquid diet urology consult for ureteral stent removal on 10/28 There is no absolute contraindication for the patient to proceed with ureteral stent tomorrow Labs and medication were reviewed.. Continue same treatment. Continue with symptomatic treatment. Resume home medication. Monitor labs and vitals. DVT and GI prophylaxis. Further recommendations as per clinical course of the patient DVT prophylaxis: hold Subcutaneous heparin given her worsening hemoglobin and thrombocytopenia GI Prophylaxis: Ppi Prognosis is guarded
--- NOTE | 2023-10-27 17:48 | CT ---
EXAMINATION TYPE: CT abdomen pelvis w con DATE OF EXAM: 10/27/2023 COMPARISON: 10/24/2023 HISTORY: midabdominal pain CT DLP: 411.3 mGycm CONTRAST: CT scan of the abdomen and pelvis is performed without Oral Contrast and with IV Contrast, patient in jected with 100 cc mL of Isovue 300. FINDINGS: LUNG BASES-: No visible nodule. No infiltrate. Interval development of small bilateral pleural effus ions. LIVER/GB: No calcified gallstones. Hepatic steatosis with mild cardiomegaly. No space occupying hep atic lesion. Biliary tree is of normal caliber. PANCREAS: No inflammation. No distinct mass. SPLEEN: No splenic enlargement. No lesion seen. ADRENALS: No nodule. No thickening. KIDNEYS/BLADDER: Left ureteral stent with moderate hydroureteronephrosis noted. Urothelial thickening could reflect underlying infection. There is calculus noted at the level of the left pelvic inlet ad jacent to the stent measuring 5.7 mm. This calculus is slightly more distal than on prior study. No a dditional calculi seen adjacent to the ureteral stent. Multiple nonobstructing right-sided renal calc gris seen. BOWEL: Normal appendix. Normal bowel caliber. No inflammation. GENITAL ORGANS: No gross abnormality. Small amount of pelvic ascites. LYMPH NODES: No greater than 1cm abdominal or pelvic lymph nodes are appreciated. AORTA: No significant abnormality. OSSEOUS STRUCTURES: No significant abnormality is seen. OTHER: No significant additional abnormality is seen. IMPRESSION: 1. Calculus adjacent to the left ureteral stent has migrated distally and is at the level of the pelv ic inlet. 2. Persistent moderate left-sided hydroureteronephrosis with urothelial thickening which may reflect underlying infection. 3. Additional calculi right kidney which are nonobstructing. 4. Small bilateral pleural effusions. Small amount of ascites.
[2023-10-28] MEDS: HYDROmorphone 1 MG/ML 1 ML SYRINGE IVP PRN ×4 (02:03→13:35)
[2023-10-28] MEDS: SODIUM CHLORIDE 0.9% 1,000 ML IV SCH ×2 (03:49→15:04)
[2023-10-28] MEDS: HYDROcodone/APAP 5-325MG 1 EACH TAB PO PRN (03:50)
[2023-10-28] MEDS: NICOTINE 14MG/24HR PATCH TRANSDERM SCH (09:59)
[2023-10-28] MEDS: levETIRAcetam 500 MG TAB PO SCH (09:59)
[2023-10-28] MEDS: FOLIC ACID 1 MG TAB PO SCH (09:59)
[2023-10-28] MEDS: PANTOPRAZOLE 40 MG/10 ML VIAL IV SCH (10:00)
[2023-10-28] MEDS: LEVOFLOXACIN 500MG-D5W PMX 500 MG in DEXTROSE/WATER 1 100ML.BAG IVPB SCH (10:00)
[2023-10-28] MEDS: THIAMINE 100 MG TAB PO SCH (10:00)
[2023-10-28] MEDS ORDERED: POTASSIUM CHLORIDE ER 20 MEQ TAB.ER PO STA (11:21)
[2023-10-28] MEDS: ONDANSETRON 4 MG/2 ML VIAL IVP PRN (13:39)
[2023-10-28] MEDS ORDERED: LACTATED RINGERS 1,000 ML IV ONE (14:13)
[2023-10-28] MEDS ORDERED: diphenhydrAMINE 50 MG/ML 1 ML VIAL ONE (15:11)
[2023-10-28] MEDS ORDERED: diphenhydrAMINE 50 MG/ML 1 ML VIAL IVP ONE (15:18)
[2023-10-28] MEDS ORDERED: DEXAMETHASONE SOD PHOSPHATE 4 MG/ML 1 ML VIAL IVP ONE (15:18)
[2023-10-28] MEDS ORDERED: FAMOTIDINE 20 MG/2 ML VIAL IVP ONE (15:26)
[2023-10-28] MEDS ORDERED: MIDAZOLAM 2 MG/2 ML VIAL IVP ONE (15:52)
[2023-10-28] MEDS ORDERED: GENTAMICIN 120 MG in SODIUM CHLORIDE 0.9% 100 ML IVPB ONE (15:58)
--- NOTE | 2023-10-28 17:13 | P.OP ---
Date of Procedure: 10/28/23 Preoperative Diagnosis: Left ureteral stone, retained stent Postoperative Diagnosis: Same Procedure(s) Performed: Cystoscopy, left ureteroscopy, laser lithotripsy, stent removal Implants: None Anesthesia: FRANKA Surgeon: Angel Gustafson Estimated Blood Loss (ml): 1 Pathology: none sent Condition: stable Disposition: PACU Indications for Procedure: 33-year-old female with history of retained stent and a left-sided proximal stone, the stone has been present for 6 months, it was placed for ureteral stone at [facility]. I did have very prolonged discussion with her that stent cannot stay in indefinitely and ideally does need to be removed within 3 to 4 months from time of stent insertion. She would like her stone to be addressed during this hospital admission. Discussed risk of renal loss with prolonged stent placement. She does have a history of alcoholism, and noncompliance. She is at high risk of having a prolonged retained stent. Her urine analysis is consistent with having a ureteral stent, but she is not having UTI symptoms. Urine culture showed no growth. At this time she agreed for for a left-sided ureteroscopy with homing laser and stent removal on October 28 Operative Findings: Moderately encrusted stent, stent removed intact. One of the stone was dislodged into the bladder upon stent removal, an additional stone was seen in the lower pole Description of Procedure: Patient brought to the operating room, general anesthesia was induced. She was prepped and draped in sterile fashion and placed in dorsolithotomy position. Cystoscopy through the 21 Congolese sheath was inserted per urethra, cystoscopy was performed which showed no abnormality within the bladder. The left ureteral stent was visualized and it was moderately encrusted. Next the stent was grasped and removed. At this time the semirigid ureteroscope was inserted per urethra, one of the stone was seen to have dislodged into the bladder upon stent removal. At this time I advanced the ureteroscope up the left ureteral orifice and all the way up to the UPJ which showed no additional stones along the course of the ureter. Pullback ureteroscopy was performed and showed no injury to the ureter or any ureteral stones, as ureteroscope was withdrawn and a sensor wire was advanced through. Next under fluoroscopy and 1113 Congolese access sheath was passed over the wire into the proximal ureter. Next a flexible ureteroscope was inserted through the access sheath, renoscopy was performed showed multiple small stones within the lower pole. Using the homing laser the stone was dusted. Repeat ureteroscopy showed no injury to the kidney or any sizable fragments, pullback ureteroscopy was performed showed no injury to the ureter or any ureteral stones. The bladder was emptied at the end of the case. Patient tolerated procedure well was taken to recovery in stable condition
[2023-10-28 17:45] VITALS: PULSE 80; RESP 18
[2023-10-28 18:36] VITALS: BP 134/84; TEMP 98.6
--- NOTE | 2023-10-28 18:55 | FL ---
EXAMINATION TYPE: FL guidance operating room DATE OF EXAM: 10/28/2023 Comparison: None Clinical History: Left Kidney Stone Findings: 7.4 SECS FL. 0.98095 Gycm2 DAP. LT RENAL STONE. One image submitted Impression: Fluoroscopy for urology procedure as above.
--- NOTE | 2023-10-29 06:44 | P.DS ---
Providers Date of admission: 10/24/23 18:00 Attending physician: Ryne Corey Consults: 10/25/23 15:21 Consult Physician Routine Consulting Provider: Angel Gustafson Consult Reason/Comments: hydronephrosis Do you want consulting provider notified?: Yes Primary care physician: [facility] Course: Diagnoses: Acute pancreatitis, most likely alcoholic effect Abdominal pain and tenderness, secondary to above Moderate hydronephrosis with left urinary stent and bilateral nonobstructing kidney stones Asymptomatic bacteriuria, with urinary tract infection is still suspected and needs to be treated as patient is going for urological procedure. Patient finished short course of antibiotics with Levaquin ALLERGIC reaction to ceftriaxone, patient informed not to use Rocephin again and she agrees Anemia and thrombocytopenia, most likely secondary to alcohol effect. Partly secondary to folate deficiency Folate deficiency, been replaced Alcohol use disorder Moderate hyponatremia, hypovolemic. Improving Headache could be tension headache, mild with no Hospital course: This is an 33 years old female with past medical history of alcohol use disorder, right kidney stone. Presents because of abdominal pain with tenderness about 5-6/10 in severity, mainly in the epigastric and radiating to both sides. Lipase was elevated on admission more than 7000. CT of the abdomen and pelvis showing fluid near the pancreas with right kidney stone, Moderate left hydronephrosis ureteral stent is present. Patient was treated with aggressive hydration and bowel rest pain medication and she showed interval improvement in her epigastric abdominal pain significantly improved and she tolerates diet well. Also patient evaluated by urologist for hydronephrosis and kidneys ureteral stone with a stent in place, and was recommended for her to take the stent out since it has been around 6 months or more when he was placed at to treat her ureteral stone at that time as well. She underwent the procedure successfully on /surgery. Today is post procedure day #0. She remains asymptomatic after the procedure I got a phone call from the bedside nurse Brionna that patient is eager to be di scharged and to leave tonight since she is feeling improved, tolerates diet, abdominal pain improved and contacted urologist Dr. Gustafson who cleared for discharge today and no need for antibiotics upon discharge. Patient also with no signs symptoms of alcohol withdrawal for the last 2-3 days. She denies any other new complaints. She denies depression and suicidal/homicidal ideation Patient was felt to quit and she agrees to quit drinking alcohol. Patient was cleared for discharge by urologist Problems and management plan were discussed with the patient and he verbalized understanding and acceptance Patient was found stable and can be discharged home in guarded prognosis however he needs follow-up as an outpatient. Patient was instructed to follow up with PCP Dr. Nevarez within one week and patient agrees Patient was instructed to follow-up with urologist Dr. Gustafson in 7-10 days and with solar sales specialist Dr. Colunga in 2-3 weeks and she agrees to call and make her appointments Physical exam Gen: patient is a AAOx3, no distress CVS: S1-S2, RRR, no murmur Lungs: B/L CTA, no wheezing Abdomen: soft, no distention, no tenderness, positive bowel sounds Extremity: no leg edema or induration Time spent more than 35 minutes Patient Condition at Discharge: Fair Plan - Discharge Summary Discharge Rx Participant: No New Discharge Prescriptions: New Folic Acid 1 mg PO DAILY #30 tab HYDROcodone/APAP 5-325MG [[place] 5-325] 1 each PO Q8HR PRN 3 Days #9 tab PRN Reason: Pain Omeprazole [PriLOSEC] 20 mg PO AC-BRKFST #30 cap Thiamine [Vitamin B-1] 100 mg PO DAILY #30 tab Nicotine 14Mg/24Hr Patch [Habitrol] 1 patch TRANSDERM DAILY #3 patch Potassium Chloride ER [K-Dur 20] 20 meq PO DAILY #3 tab Magnesium Oxide [Mag-Ox] 400 mg PO BID 5 Days #10 tablet Continue Acetaminophen Tab [Tylenol] 650 mg PO Q6HR PRN tab PRN Reason: Fever And/ Or Pain QUEtiapine [SEROquel] 50 mg PO HS Ibuprofen [Motrin Ib] 600 mg PO Q8H PRN PRN Reason: Fever And/ Or Pain Tamsulosin HCl [Flomax] 0.4 mg PO DAILY PRN PRN Reason: URINARY ISSUES levETIRAcetam [Keppra] 500 mg PO BID Discharge Medication List Acetaminophen Tab [Tylenol] 650 mg PO Q6HR PRN tab 01/22/22 [Rx] Ibuprofen [Motrin Ib] 600 mg PO Q8H PRN 10/24/23 [History] QUEtiapine [SEROquel] 50 mg PO HS 10/24/23 [History] Tamsulosin HCl [Flomax] 0.4 mg PO DAILY PRN 10/24/23 [History] levETIRAcetam [Keppra] 500 mg PO BID 10/26/23 [History] Folic Acid 1 mg PO DAILY #30 tab 10/28/23 [Rx] HYDROcodone/APAP 5-325MG [Avon 5-325] 1 each PO Q8HR PRN 3 Days #9 tab 10/28/23 [Rx] Magnesium Oxide [Mag-Ox] 400 mg PO BID 5 Days #10 tablet 10/28/23 [Rx] Nicotine 14Mg/24Hr Patch [Habitrol] 1 patch TRANSDERM DAILY #3 patch 10/28/23 [Rx] Omeprazole [PriLOSEC] 20 mg PO AC-BRKFST #30 cap 10/28/23 [Rx] Potassium Chloride ER [K-Dur 20] 20 meq PO DAILY #3 tab 10/28/23 [Rx] Thiamine [Vitamin B-1] 100 mg PO DAILY #30 tab 10/28/23 [Rx] Follow up Appointment(s)/Referral(s): Angel Gustafson MD [STAFF PHYSICIAN] - 10 Days (urologist ) Lian Colunga MD [STAFF PHYSICIAN] - 3 Weeks (GI- Pancreas doctor ) Govind Nevarez MD [Primary Care Provider] - 1-2 days Patient Instructions/Handouts: Hydrocodone/Acetaminophen (By mouth), Potassium Chloride (By mouth), Omeprazole (By mouth), Thiamine (By mouth), Folic Acid (By mouth), Nicotine (Absorbed through the skin), Magnesium Oxide (By mouth), Pancreatitis (DC), Kidney Stones (DC), Abuse of Alcohol (DC), Lithotripsy (DC) Activity/Diet/Wound Care/Special Instructions: Heart healthy diet, avoid food that upset your stomach Activity is restricted till you see your doctor Discharge/Stand Alone Forms: AA Meetings [address] - [facility], AA Meetings [place], Outpatient Counseling Discharge Disposition: HOME SELF-CARE
== END 2023-10-28 19:38 | disposition home or self-care (01) | DRG 439 ==
LOC: EC 14:17 → 5NMEDONC 18:00
PROVIDERS: ADMIT Hospitalist; ATTEND Hospitalist
PROC: 0TP98DZ Removal of Intraluminal Device from Ureter, Via Natural or Artificial Opening Endoscopic (ICD-10-PCS; principal; 2023-10-28 07:30)
PROC: 0TC78ZZ Extirpation of Matter from Left Ureter, Via Natural or Artificial Opening Endoscopic (ICD-10-PCS; principal; 2023-10-28 07:30)
DX: K85.20 Alcohol induced acute pancreatitis without necrosis or infection (principal); E87.1 Hypo-osmolality and hyponatremia; N13.2 Hydronephrosis with renal and ureteral calculous obstruction; D69.59 Other secondary thrombocytopenia; D64.9 Anemia, unspecified; E53.8 Deficiency of other specified B group vitamins; E86.1 Hypovolemia; F17.200 Nicotine dependence, unspecified, uncomplicated; G40.909 Epilepsy, unspecified, not intractable, without status epilepticus; Z88.1 Allergy status to other antibiotic agents; Z28.310 Unvaccinated for COVID-19; Z28.21 Immunization not carried out because of patient refusal; R31.0 Gross hematuria; Z79.899 Other long term (current) drug therapy; Z87.442 Personal history of urinary calculi; Z91.199 Patient's noncompliance with other medical treatment and regimen due to unspecified reason; Z96.0 Presence of urogenital implants; Z71.6 Tobacco abuse counseling; G44.209 Tension-type headache, unspecified, not intractable
CPT/HCPCS: 36415; 74018; 74177; 80048; 80053; 80076; 81001; 81025; 82607; 82746; 83605; 83690; 83735; 84132; 84145; 84703; 85025; 87086; 96361; 96372; 96374; 96375; 96376; 99285